=== PATIENT | male | born 1980 | race Caucasian/White ===

== ENCOUNTER 2018-04-10 08:56 | Inpatient (IN) | payer MEDICAID ==
[~2018-04-10] VITALS: Ht 188 cm; Wt 114.1 kg
[2018-04-10] MEDS ORDERED: QUET25TA PO (09:07)
[2018-04-10] MEDS ORDERED: ASPI-556 PO (09:24)
[2018-04-10] MEDS ORDERED: ESCI10TA PO (09:24)
[2018-04-10] MEDS ORDERED: HYDR25TA PO (09:24)
[2018-04-10 09:25] LABS: BASOPHILS % (AUTO) 1.2 % (0.0-2.0); EOSINOPHILS % (AUTO) 2.1 % (1.0-6.0); HEMATOCRIT 41.7 % (41-53); HEMOGLOBIN 14.4 g/dL (13.5-17.5); LYMPHOCYTES # (AUTO) 1.8 K/uL (1.0-4.8); LYMPHOCYTES % (AUTO) 20.5 % (22.0-44.0); MEAN CORPUSCULAR HEMOGLOBIN 29.1 pg (26.0-34.0); MEAN CORPUSCULAR HGB CONC 34.6 G/dL (31.0-37.0); MEAN CORPUSCULAR VOLUME 84 fL (80-100); MONOCYTES # (AUTO) 0.6 K/uL (0.1-1.0); MONOCYTES % (AUTO) 7.5 % (2.0-9.0); NEUTROPHILS # (AUTO) 5.9 K/uL (1.8-7.7); NEUTROPHILS % (AUTO) 68.7 % (40.0-70.0); PLATELET COUNT (AUTO) 303 K/uL (150-450); RED BLOOD CELL COUNT(AUTO) 4.95 MIL/uL (4.50-5.90); RED CELL DISTRIBUTION WIDTH 13.5 % (11.5-14.5)
[2018-04-10] MEDS ORDERED: DiphenhydrAMINE HCL 50 MG/ML VIAL IM ONE (09:30)
[2018-04-10] MEDS ORDERED: LORazepam 2 MG/ML VIAL IM ONE (09:30)
[2018-04-10] MEDS ORDERED: HALOPERIDOL LACTATE 5 MG/ML VIAL IM ONE (09:30)
[2018-04-10 09:36] LABS: ANION GAP 8 mmol/L (8-16); CALCIUM, TOTAL 8.2 mg/dL (8.8-10.5); CARBON DIOXIDE 27 mmol/L (22-29); CHLORIDE 102 mmol/L (98-107); CREATININE 1.08 mg/dL (0.60-1.30); GLOMERULAR FILTR. RATE CALC > 60 mL/min (>60); GLUCOSE,RANDOM 123 mg/dL (70-110); POTASSIUM 3.4 mmol/L (3.5-5.1); SODIUM SERUM 137 mmol/L (136-145); UREA NITROGEN, BLOOD 18 mg/dL (7-18)
[2018-04-10 09:42] LABS: ALANINE AMINOTRANSFERASE 71 U/L (12-78); ALBUMIN 3.9 g/dL (3.4-5.0); ALKALINE PHOSPHATASE 57 U/L (46-116); ASPARTATE AMINOTRANSFERASE 53 U/L (15-37); BILIRUBIN,TOTAL 0.4 mg/dL (0.1-1.0); TOTAL PROTEIN, SERUM 7.6 g/dL (6.4-8.2)
[2018-04-10 09:58] LABS: AMPHET/METH SCREEN,URINE NEGATIVE (NEGATIVE); BARBITURATE SCREEN, URINE NEGATIVE (NEGATIVE); BENZODIAZEPINES SCREEN,URINE NEGATIVE (NEGATIVE); CANNABINOID SCREEN,URINE NEGATIVE (NEGATIVE); COCAINE SCREEN,URINE NEGATIVE (NEGATIVE); METHADONE SCREEN, URINE NEGATIVE (NEGATIVE); OPIATE SCREEN,URINE NEGATIVE (NEGATIVE)
[2018-04-10 09:59] LABS: PHENCYCLIDINE SCREEN,URINE NEGATIVE (NEGATIVE)
[2018-04-10 11:29] LABS: CHOL/HDL RATIO 5.7 (4.2-7.3); CHOLESTEROL 193 mg/dL (131-200); HDL CHOLESTEROL 34 mg/dL (40-60); LDL CHOL (CALC.) 125 mg/dL (0-130); TRIGLYCERIDES 172 mg/dL (15-150)
[2018-04-10] MEDS ORDERED: POTASSIUM CHLORIDE 20 MEQ ER TABLET PO ONE (16:00)
[2018-04-10 16:11] VITALS: BP 132/80
[2018-04-10] MEDS: LORazepam 2 MG TABLET PO PRN (16:31)
[2018-04-10] MEDS: HALOPERIDOL 5 MG TABLET PO PRN (16:31)
[2018-04-10] MEDS: HYDROCHLOROTHIAZIDE 25 MG TABLET PO SCH (16:31)
[2018-04-11 01:18] VITALS: BP 125/72
[2018-04-11 07:38] LABS: ANION GAP 7 mmol/L (8-16); CALCIUM, TOTAL 7.8 mg/dL (8.8-10.5); CARBON DIOXIDE 29 mmol/L (22-29); CHLORIDE 107 mmol/L (98-107); CREATININE 1.06 mg/dL (0.60-1.30); GLOMERULAR FILTR. RATE CALC > 60 mL/min (>60); GLUCOSE,RANDOM 92 mg/dL (70-110); SODIUM SERUM 143 mmol/L (136-145); UREA NITROGEN, BLOOD 18 mg/dL (7-18)
[2018-04-11 08:09] VITALS: BP_SYST 157; BP_DIAS 82; BP_DIAS 92
[2018-04-11] MEDS: ASPIRIN 81 MG CHEWABLE TABLET PO SCH (08:48)
[2018-04-11] MEDS: HALOPERIDOL 5 MG TABLET PO PRN ×2 (08:48→16:57)
[2018-04-11] MEDS: HYDROCHLOROTHIAZIDE 25 MG TABLET PO SCH (08:48)
[2018-04-11] MEDS: LORazepam 2 MG TABLET PO PRN ×2 (08:48→16:57)
[2018-04-11] MEDS ORDERED: HYDROCHLOROTHIAZIDE 25 MG TABLET PO SCH (09:00)
[2018-04-11] MEDS: RisperiDONE 1 MG TABLET PO SCH ×2 (09:43→20:23)
[2018-04-11] MEDS: SERTRALINE HCL 50 MG TABLET PO SCH (09:43)
[2018-04-11 16:13] VITALS: BP 111/82
[2018-04-12 06:32] VITALS: BP 128/86
[2018-04-12 08:55] VITALS: BP 142/73
[2018-04-12] MEDS: HYDROCHLOROTHIAZIDE 25 MG TABLET PO SCH (09:32)
[2018-04-12] MEDS: RisperiDONE 1 MG TABLET PO SCH ×2 (09:32→20:06)
[2018-04-12] MEDS: SERTRALINE HCL 50 MG TABLET PO SCH (09:32)
[2018-04-12] MEDS: ASPIRIN 81 MG CHEWABLE TABLET PO SCH (09:32)
[2018-04-12] MEDS: HALOPERIDOL 5 MG TABLET PO PRN ×2 (09:33→20:06)
[2018-04-12] MEDS: LORazepam 2 MG TABLET PO PRN ×2 (09:33→20:06)
[2018-04-12] MEDS: NICOTINE 21 MG/24 HOUR PATCH TD SCH (09:50)
[2018-04-12 16:00] VITALS: BP 123/68
[2018-04-12] MEDS: DiphenhydrAMINE HCL 25 MG CAPSULE PO PRN (20:06)
[2018-04-12] MEDS: ZOLPIDEM TARTRATE 10 MG TABLET PO PRN (20:33)
[2018-04-13 06:30] VITALS: BP 137/90
[2018-04-13] MEDS: LORazepam 2 MG TABLET PO PRN (08:35)
[2018-04-13] MEDS: HYDROCHLOROTHIAZIDE 25 MG TABLET PO SCH (08:36)
[2018-04-13] MEDS: RisperiDONE 1 MG TABLET PO SCH ×2 (08:36→20:58)
[2018-04-13] MEDS: SERTRALINE HCL 50 MG TABLET PO SCH (08:36)
[2018-04-13] MEDS: ASPIRIN 81 MG CHEWABLE TABLET PO SCH (08:36)
[2018-04-13] MEDS: NICOTINE 21 MG/24 HOUR PATCH TD SCH (08:37)
[2018-04-13 08:47] VITALS: BP 135/82
[2018-04-13] MEDS ORDERED: SERT50TA12 PO (10:10)
[2018-04-13] MEDS ORDERED: NICO-650 MISC (10:10)
[2018-04-13] MEDS ORDERED: RISP1 PO (10:10)
[2018-04-13] MEDS ORDERED: HALO5TAB2 PO (10:10)
[2018-04-13] MEDS ORDERED: DIPH50 PO (10:10)
[2018-04-13] MEDS ORDERED: LORA2TAB2 PO (10:10)
[2018-04-13] MEDS ORDERED: ZOLP10TA7 PO (10:10)
[2018-04-13 14:00] VITALS: BP 116/78
[2018-04-13] MEDS: IBUPROFEN 600 MG TABLET PO PRN (14:00)
[2018-04-13] MEDS ORDERED: ACETAMINOPHEN 325 MG TABLET PO PRN (14:00)
[2018-04-13] MEDS ORDERED: LORazepam 2 MG/ML VIAL ONE (14:58)
[2018-04-13] MEDS ORDERED: HALOPERIDOL LACTATE 5 MG/ML VIAL ONE (14:59)
[2018-04-13] MEDS ORDERED: DiphenhydrAMINE HCL 50 MG/ML VIAL ONE (14:59)
[2018-04-13 15:00] VITALS: BP 118/72
[2018-04-13] MEDS ORDERED: LORazepam 2 MG/ML VIAL IM ONE (15:00)
[2018-04-13] MEDS ORDERED: DiphenhydrAMINE HCL 50 MG/ML VIAL IM ONE (15:00)
[2018-04-13] MEDS ORDERED: HALOPERIDOL LACTATE 5 MG/ML VIAL IM ONE (15:00)
[2018-04-13 16:09] VITALS: BP 133/73
[2018-04-13] MEDS: ZOLPIDEM TARTRATE 10 MG TABLET PO PRN (20:58)
[2018-04-14] MEDS: DiphenhydrAMINE HCL 25 MG CAPSULE PO PRN (01:16)
[2018-04-14 01:17] VITALS: BP 143/87
[2018-04-14] MEDS: IBUPROFEN 600 MG TABLET PO PRN (05:59)
[2018-04-14 06:01] VITALS: BP 140/88
[2018-04-14] MEDS: HALOPERIDOL 5 MG TABLET PO PRN (06:37)
[2018-04-14] MEDS: LORazepam 2 MG TABLET PO PRN ×2 (07:58→17:54)
[2018-04-14] MEDS: SERTRALINE HCL 50 MG TABLET PO SCH (08:36)
[2018-04-14] MEDS: HYDROCHLOROTHIAZIDE 25 MG TABLET PO SCH (08:36)
[2018-04-14] MEDS: RisperiDONE 1 MG TABLET PO SCH ×2 (08:36→21:40)
[2018-04-14] MEDS: NICOTINE 21 MG/24 HOUR PATCH TD SCH (08:36)
[2018-04-14] MEDS: ASPIRIN 81 MG CHEWABLE TABLET PO SCH (08:37)
[2018-04-14 08:53] VITALS: BP 155/98
[2018-04-14] MEDS ORDERED: HALOPERIDOL LACTATE 5 MG/ML VIAL IM ONE ×2 (09:00→18:15)
[2018-04-14] MEDS ORDERED: LORazepam 2 MG/ML VIAL IM ONE (09:00)
[2018-04-14] MEDS ORDERED: DiphenhydrAMINE HCL 50 MG/ML VIAL IM ONE ×2 (09:00→18:15)
[2018-04-14 09:30] VITALS: BP 111/70
[2018-04-14 16:12] VITALS: BP 137/87
[2018-04-15] MEDS: ZOLPIDEM TARTRATE 10 MG TABLET PO PRN ×2 (00:52→20:19)
[2018-04-15] MEDS: QUEtiapine FUMARATE 200 MG TABLET PO PRN ×3 (00:52→15:51)
[2018-04-15] MEDS: DiphenhydrAMINE HCL 25 MG CAPSULE PO PRN (00:52)
[2018-04-15 06:26] VITALS: BP 142/88
[2018-04-15 08:05] VITALS: BP 140/85
[2018-04-15] MEDS: BACITRACIN 28.4 GM OINTMENT TP SCH (08:30)
[2018-04-15] MEDS: ASPIRIN 81 MG CHEWABLE TABLET PO SCH (08:30)
[2018-04-15] MEDS: SERTRALINE HCL 50 MG TABLET PO SCH (08:30)
[2018-04-15] MEDS: RisperiDONE 1 MG TABLET PO SCH ×2 (08:30→20:19)
[2018-04-15] MEDS: NICOTINE 21 MG/24 HOUR PATCH TD SCH (08:31)
[2018-04-15] MEDS: HYDROCHLOROTHIAZIDE 25 MG TABLET PO SCH (08:31)
[2018-04-15] MEDS: LORazepam 2 MG TABLET PO PRN ×3 (11:49→20:19)
[2018-04-15 16:00] VITALS: BP 142/90
[2018-04-16] MEDS: DiphenhydrAMINE HCL 25 MG CAPSULE PO PRN ×2 (02:08→20:23)
[2018-04-16 02:13] VITALS: BP 139/103
[2018-04-16] MEDS: QUEtiapine FUMARATE 200 MG TABLET PO PRN (02:25)
[2018-04-16] MEDS: LORazepam 2 MG TABLET PO PRN ×2 (04:42→08:58)
[2018-04-16] MEDS: QUEtiapine FUMARATE 100 MG TABLET PO PRN ×4 (05:56→20:23)
[2018-04-16 08:22] VITALS: BP 151/88
[2018-04-16] MEDS: ASPIRIN 81 MG CHEWABLE TABLET PO SCH (08:58)
[2018-04-16] MEDS: HYDROCHLOROTHIAZIDE 25 MG TABLET PO SCH (08:58)
[2018-04-16] MEDS: SERTRALINE HCL 50 MG TABLET PO SCH (08:58)
[2018-04-16] MEDS: NICOTINE 21 MG/24 HOUR PATCH TD SCH (08:58)
[2018-04-16] MEDS: RisperiDONE 1 MG TABLET PO SCH ×2 (08:58→20:23)
[2018-04-16] MEDS: BACITRACIN 28.4 GM OINTMENT TP SCH (09:02)
[2018-04-16] MEDS: LORazepam 1 MG TABLET PO PRN ×2 (12:56→17:20)
[2018-04-16 16:00] VITALS: BP 138/84
[2018-04-16] MEDS: LORATADINE 10 MG TABLET PO SCH (17:20)
[2018-04-16] MEDS: ZOLPIDEM TARTRATE 10 MG TABLET PO PRN (20:23)
[2018-04-16] MEDS: IBUPROFEN 600 MG TABLET PO PRN (22:09)
[2018-04-17] MEDS: LORazepam 1 MG TABLET PO PRN ×4 (00:26→16:28)
[2018-04-17] MEDS: QUEtiapine FUMARATE 100 MG TABLET PO PRN ×4 (00:26→16:05)
[2018-04-17 04:41] VITALS: BP 139/88
[2018-04-17] MEDS: IBUPROFEN 600 MG TABLET PO PRN ×2 (06:27→16:05)
[2018-04-17 08:53] VITALS: BP 134/87
[2018-04-17] MEDS: LORATADINE 10 MG TABLET PO SCH (09:01)
[2018-04-17] MEDS: HYDROCHLOROTHIAZIDE 25 MG TABLET PO SCH (09:01)
[2018-04-17] MEDS: ASPIRIN 81 MG CHEWABLE TABLET PO SCH (09:01)
[2018-04-17] MEDS: SERTRALINE HCL 50 MG TABLET PO SCH (09:01)
[2018-04-17] MEDS: RisperiDONE 1 MG TABLET PO SCH ×2 (09:01→20:11)
[2018-04-17] MEDS: NICOTINE 21 MG/24 HOUR PATCH TD SCH (09:04)
[2018-04-17] MEDS: BACITRACIN 28.4 GM OINTMENT TP SCH (09:05)
[2018-04-17 12:25] VITALS: BP 137/80
[2018-04-17 16:03] VITALS: BP 135/88
[2018-04-17 16:06] VITALS: BP 139/88
[2018-04-17] MEDS: ZOLPIDEM TARTRATE 10 MG TABLET PO PRN (20:11)
[2018-04-18] MEDS: QUEtiapine FUMARATE 100 MG TABLET PO PRN ×2 (03:18→16:19)
[2018-04-18] MEDS: IBUPROFEN 600 MG TABLET PO PRN ×3 (03:18→19:27)
[2018-04-18] MEDS: LORazepam 1 MG TABLET PO PRN ×2 (03:18→14:13)
[2018-04-18 03:19] VITALS: BP 149/96
[2018-04-18 08:14] VITALS: BP 147/91
[2018-04-18] MEDS: SERTRALINE HCL 50 MG TABLET PO SCH (08:33)
[2018-04-18] MEDS: LORATADINE 10 MG TABLET PO SCH (08:33)
[2018-04-18] MEDS: HYDROCHLOROTHIAZIDE 25 MG TABLET PO SCH (08:33)
[2018-04-18] MEDS: RisperiDONE 1 MG TABLET PO SCH ×2 (08:34→20:29)
[2018-04-18] MEDS: ASPIRIN 81 MG CHEWABLE TABLET PO SCH (08:34)
[2018-04-18] MEDS: BACITRACIN 28.4 GM OINTMENT TP SCH (08:37)
[2018-04-18] MEDS: NICOTINE 21 MG/24 HOUR PATCH TD SCH (08:37)
[2018-04-18 12:50] VITALS: BP 139/91
[2018-04-18 16:24] VITALS: BP 146/86
[2018-04-18] MEDS: DiphenhydrAMINE HCL 25 MG CAPSULE PO PRN (20:29)
[2018-04-18] MEDS: ZOLPIDEM TARTRATE 10 MG TABLET PO PRN (20:30)
[2018-04-19 00:45] VITALS: BP 142/88
[2018-04-19] MEDS: QUEtiapine FUMARATE 100 MG TABLET PO PRN (00:46)
[2018-04-19] MEDS: LORazepam 1 MG TABLET PO PRN (00:47)
[2018-04-19] MEDS: IBUPROFEN 600 MG TABLET PO PRN (06:25)
[2018-04-19 08:07] VITALS: BP 117/66
[2018-04-19] MEDS: RisperiDONE 1 MG TABLET PO SCH (08:17)
[2018-04-19] MEDS: ASPIRIN 81 MG CHEWABLE TABLET PO SCH (08:17)
[2018-04-19] MEDS: SERTRALINE HCL 50 MG TABLET PO SCH (08:17)
[2018-04-19] MEDS: LORATADINE 10 MG TABLET PO SCH (08:17)
[2018-04-19] MEDS: NICOTINE 21 MG/24 HOUR PATCH TD SCH (08:18)
[2018-04-19] MEDS: HYDROCHLOROTHIAZIDE 25 MG TABLET PO SCH (08:18)
[2018-04-19] MEDS: BACITRACIN 28.4 GM OINTMENT TP SCH (08:18)
[2018-04-19] MEDS ORDERED: LORA10TA7 PO (08:47)
== END 2018-04-19 10:45 | disposition home or self-care (01) | DRG 750 ==
LOC: EMS 09:00 → B3A 13:47
DX: F25.1 Schizoaffective disorder, depressive type (principal); Z59.0 Homelessness; M43.6 Torticollis; R03.0 Elevated blood-pressure reading, without diagnosis of hypertension; Z79.899 Other long term (current) drug therapy
CPT/HCPCS: 96372; 99285; G0480; J1200; J1630; J2060

== ENCOUNTER 2018-04-13 09:47 | Emergency (ER) | payer MEDICAID ==
[~2018-04-13] VITALS: Ht 190.5 cm; Wt 104.0 kg
[~2018-04-13 09:47] MED LIST: ASPI-556 PO; ESCI10TA PO; HYDR25TA PO; QUET25TA PO
[2018-04-13] MEDS ORDERED: NICO-650 MISC (10:10)
[2018-04-13] MEDS ORDERED: SERT50TA12 PO (10:10)
[2018-04-13] MEDS ORDERED: HALO5TAB2 PO (10:10)
[2018-04-13] MEDS ORDERED: LORA2TAB2 PO (10:10)
[2018-04-13] MEDS ORDERED: ZOLP10TA7 PO (10:10)
[2018-04-13] MEDS ORDERED: DIPH50 PO (10:10)
[2018-04-13] MEDS ORDERED: RISP1 PO (10:10)
[2018-04-13 10:19] VITALS: BP 134/76
== END 2018-04-13 11:12 | disposition home or self-care (01) ==
LOC: EMS 09:48
DX: G25.9 Extrapyramidal and movement disorder, unspecified (principal)
CPT/HCPCS: 99283

== ENCOUNTER 2018-04-29 10:26 | Inpatient (IN) | payer MEDICAID ==
[~2018-04-29] VITALS: Ht 190.5 cm; Wt 108.9 kg
[~2018-04-29 10:26] MED LIST changes: -ESCI10TA PO; +LORA10TA7 PO; -QUET25TA PO; +RISP1 PO; +SERT50TA12 PO
[2018-04-29 11:07] LABS: BASOPHILS % (AUTO) 0.9 % (0.0-2.0); EOSINOPHILS % (AUTO) 2.5 % (1.0-6.0); HEMATOCRIT 41.9 % (41-53); HEMOGLOBIN 14.9 g/dL (13.5-17.5); LYMPHOCYTES # (AUTO) 2.1 K/uL (1.0-4.8); LYMPHOCYTES % (AUTO) 24.3 % (22.0-44.0); MEAN CORPUSCULAR HEMOGLOBIN 29.5 pg (26.0-34.0); MEAN CORPUSCULAR HGB CONC 35.6 G/dL (31.0-37.0); MEAN CORPUSCULAR VOLUME 83 fL (80-100); MONOCYTES # (AUTO) 0.5 K/uL (0.1-1.0); MONOCYTES % (AUTO) 6.1 % (2.0-9.0); NEUTROPHILS # (AUTO) 5.6 K/uL (1.8-7.7); NEUTROPHILS % (AUTO) 66.2 % (40.0-70.0); PLATELET COUNT (AUTO) 322 K/uL (150-450); RED BLOOD CELL COUNT(AUTO) 5.06 MIL/uL (4.50-5.90)
[2018-04-29 11:21] LABS: ALANINE AMINOTRANSFERASE 77 U/L (12-78); ALBUMIN 3.9 g/dL (3.4-5.0); ALKALINE PHOSPHATASE 51 U/L (46-116); ANION GAP 8 mmol/L (8-16); ASPARTATE AMINOTRANSFERASE 52 U/L (15-37); BILIRUBIN,TOTAL 0.4 mg/dL (0.1-1.0); CALCIUM, TOTAL 8.3 mg/dL (8.8-10.5); CARBON DIOXIDE 29 mmol/L (22-29); CHLORIDE 100 mmol/L (98-107); CREATININE 1.09 mg/dL (0.60-1.30); GLOMERULAR FILTR. RATE CALC > 60 mL/min (>60); GLUCOSE,RANDOM 112 mg/dL (70-110); SODIUM SERUM 137 mmol/L (136-145); TOTAL PROTEIN, SERUM 7.3 g/dL (6.4-8.2); UREA NITROGEN, BLOOD 15 mg/dL (7-18)
[2018-04-29 11:25] LABS: POTASSIUM 2.8 mmol/L (3.5-5.1)
[2018-04-29] MEDS ORDERED: LORazepam 2 MG/ML VIAL IM ONE (11:30)
[2018-04-29] MEDS ORDERED: POTASSIUM CHLORIDE 20 MEQ ER TABLET PO ONE (11:30)
[2018-04-29] MEDS ORDERED: FluPHENAZine HCL 2.5 MG/ML INJ IM ONE (11:30)
[2018-04-29] MEDS ORDERED: DiphenhydrAMINE HCL 50 MG/ML VIAL IM ONE (11:30)
[2018-04-29 11:37] LABS: AMPHET/METH SCREEN,URINE NEGATIVE (NEGATIVE); BARBITURATE SCREEN, URINE NEGATIVE (NEGATIVE); BENZODIAZEPINES SCREEN,URINE NEGATIVE (NEGATIVE); CANNABINOID SCREEN,URINE NEGATIVE (NEGATIVE); COCAINE SCREEN,URINE NEGATIVE (NEGATIVE); METHADONE SCREEN, URINE NEGATIVE (NEGATIVE); OPIATE SCREEN,URINE NEGATIVE (NEGATIVE)
[2018-04-29 11:39] LABS: PHENCYCLIDINE SCREEN,URINE NEGATIVE (NEGATIVE)
[2018-04-29 19:01] VITALS: BP 137/79
[2018-04-29] MEDS: LORazepam 2 MG TABLET PO PRN (19:08)
[2018-04-29] MEDS ORDERED: POTASSIUM CHLORIDE 10 MEQ ER TABLET PO ONE (19:45)
[2018-04-29] MEDS: ZOLPIDEM TARTRATE 10 MG TABLET PO PRN (20:04)
[2018-04-29] MEDS: RisperiDONE 1 MG TABLET PO SCH (20:04)
[2018-04-30 04:01] VITALS: BP 132/88
[2018-04-30] MEDS ORDERED: HYDROCHLOROTHIAZIDE 25 MG TABLET PO SCH (09:00)
[2018-04-30] MEDS: ASPIRIN 81 MG CHEWABLE TABLET PO SCH (09:04)
[2018-04-30] MEDS: SERTRALINE HCL 50 MG TABLET PO SCH (09:04)
[2018-04-30] MEDS: RisperiDONE 1 MG TABLET PO SCH ×2 (09:04→20:50)
[2018-04-30] MEDS: NICOTINE 14 MG/24 HOUR PATCH TD SCH (09:05)
[2018-04-30] MEDS ORDERED: POTASSIUM CHLORIDE 20 MEQ ER TABLET PO ONE ×3 (09:35→17:00)
[2018-04-30] MEDS ORDERED: SERTRALINE HCL 50 MG TABLET PO SCH (10:45)
[2018-04-30] MEDS ORDERED: RisperiDONE 1 MG TABLET PO SCH (10:45)
[2018-04-30] MEDS ORDERED: ACETAMINOPHEN 325 MG TABLET PO PRN (11:30)
[2018-04-30] MEDS ORDERED: PETROLATUM,WHITE 71 GM JELLY TP PRN (11:30)
[2018-04-30] MEDS ORDERED: CloNIDine HCL 0.1 MG TABLET PO PRN (11:30)
[2018-04-30] MEDS ORDERED: IBUPROFEN 400 MG TABLET PO PRN (11:30)
[2018-04-30] MEDS ORDERED: DOCUSATE SODIUM 100 MG CAPSULE PO PRN (11:30)
[2018-04-30] MEDS ORDERED: MAGNESIUM HYDROXIDE SUSPENSION 30 ML UDCUP PO PRN (11:30)
[2018-04-30] MEDS ORDERED: ALBUTEROL SULFATE HFA 90 MCG/PUFF 8 GM INHALER IH PRN (11:30)
[2018-04-30] MEDS ORDERED: MAG HYDROX/AL HYDROX/SIMETH ES 30 ML SUSPENSION UDCUP PO PRN (11:30)
[2018-04-30] MEDS ORDERED: ONDANSETRON HCL 4 MG TABLET PO PRN (11:30)
[2018-04-30] MEDS ORDERED: LOPERAMIDE HCL 2 MG CAPSULE PO PRN (11:30)
[2018-04-30] MEDS: LORazepam 2 MG TABLET PO PRN ×2 (13:34→17:47)
[2018-04-30] MEDS: QUEtiapine FUMARATE 100 MG TABLET PO PRN (13:34)
[2018-04-30 14:38] VITALS: BP 121/65
[2018-04-30 15:39] LABS: ANION GAP 13 mmol/L (8-16); CALCIUM, TOTAL 8.5 mg/dL (8.8-10.5); CARBON DIOXIDE 27 mmol/L (22-29); CHLORIDE 100 mmol/L (98-107); GLOMERULAR FILTR. RATE CALC > 60 mL/min (>60); GLUCOSE,RANDOM 96 mg/dL (70-110); SODIUM SERUM 140 mmol/L (136-145); UREA NITROGEN, BLOOD 19 mg/dL (7-18)
[2018-04-30 16:00] VITALS: BP 116/67
[2018-05-01] MEDS: QUEtiapine FUMARATE 100 MG TABLET PO PRN (04:13)
[2018-05-01] MEDS: LORazepam 2 MG TABLET PO PRN ×3 (04:13→23:33)
[2018-05-01 05:27] VITALS: BP 122/71
[2018-05-01 08:07] VITALS: BP 153/88
[2018-05-01] MEDS ORDERED: NICOTINE 14 MG/24 HOUR PATCH TD SCH (09:00)
[2018-05-01] MEDS: ASPIRIN 81 MG CHEWABLE TABLET PO SCH (09:28)
[2018-05-01] MEDS: AmLODIPine BESYLATE 10 MG TABLET PO SCH (09:28)
[2018-05-01] MEDS: RisperiDONE 1 MG TABLET PO SCH ×2 (09:28→20:17)
[2018-05-01] MEDS: SERTRALINE HCL 50 MG TABLET PO SCH (09:28)
[2018-05-01] MEDS: NICOTINE 14 MG/24 HOUR PATCH TD SCH (09:29)
[2018-05-01 16:00] VITALS: BP 130/79
[2018-05-01] MEDS: ZOLPIDEM TARTRATE 10 MG TABLET PO PRN (20:17)
[2018-05-02 01:08] VITALS: BP 140/96
[2018-05-02 08:00] VITALS: BP 161/105
[2018-05-02] MEDS: SERTRALINE HCL 50 MG TABLET PO SCH (08:19)
[2018-05-02] MEDS: LORazepam 2 MG TABLET PO PRN (08:19)
[2018-05-02] MEDS: NICOTINE 14 MG/24 HOUR PATCH TD SCH (08:19)
[2018-05-02] MEDS: AmLODIPine BESYLATE 10 MG TABLET PO SCH (08:19)
[2018-05-02] MEDS: ASPIRIN 81 MG CHEWABLE TABLET PO SCH (08:19)
[2018-05-02] MEDS: RisperiDONE 1 MG TABLET PO SCH ×2 (08:20→21:19)
[2018-05-02 08:54] LABS: POTASSIUM 3.7 mmol/L (3.5-5.1)
[2018-05-02 08:58] LABS: HEMOGLOBIN A1C 5.7 % (4.5-6.2)
[2018-05-02 16:00] VITALS: BP 130/85
[2018-05-03] MEDS: ZOLPIDEM TARTRATE 10 MG TABLET PO PRN (00:45)
[2018-05-03 01:35] VITALS: BP 136/90
[2018-05-03] MEDS: LORazepam 2 MG TABLET PO PRN ×2 (05:20→08:26)
[2018-05-03 08:10] VITALS: BP 140/81
[2018-05-03] MEDS: NICOTINE 14 MG/24 HOUR PATCH TD SCH (08:26)
[2018-05-03] MEDS: AmLODIPine BESYLATE 10 MG TABLET PO SCH (08:27)
[2018-05-03] MEDS: SERTRALINE HCL 50 MG TABLET PO SCH (08:27)
[2018-05-03] MEDS: ASPIRIN 81 MG CHEWABLE TABLET PO SCH (08:27)
[2018-05-03] MEDS: RisperiDONE 1 MG TABLET PO SCH (08:27)
[2018-05-03] MEDS ORDERED: SERT50TA12 PO (08:36)
[2018-05-03] MEDS ORDERED: RISP1 PO (08:36)
[2018-05-03] MEDS ORDERED: RISP1TAB89 PO (11:51)
[2018-05-03] MEDS ORDERED: AMLO-512 PO (11:51)
== END 2018-05-03 12:38 | disposition home or self-care (01) | DRG 750 ==
LOC: EMS 10:29 → B3A 17:55
DX: F25.1 Schizoaffective disorder, depressive type (principal); R45.851 Suicidal ideations; R74.0 Nonspecific elevation of levels of transaminase and lactic acid dehydrogenase [LDH]; I10 Essential (primary) hypertension; E87.6 Hypokalemia; J30.9 Allergic rhinitis, unspecified; Z79.899 Other long term (current) drug therapy
CPT/HCPCS: 83036; 84132; 87081; 96372; 99285; G0480; J1200; J2060; J3490

== ENCOUNTER 2018-05-16 11:34 | Inpatient (IN) | payer MEDICAID ==
[~2018-05-16] VITALS: Ht 190.5 cm; Wt 106.0 kg
[~2018-05-16 11:34] MED LIST changes: +AMLO-512 PO; -HYDR25TA PO; -LORA10TA7 PO; +RISP1TAB89 PO
[2018-05-16 12:05] LABS: AMPHET/METH SCREEN,URINE NEGATIVE (NEGATIVE); BARBITURATE SCREEN, URINE NEGATIVE (NEGATIVE); BENZODIAZEPINES SCREEN,URINE POSITIVE (NEGATIVE); CANNABINOID SCREEN,URINE NEGATIVE (NEGATIVE); COCAINE SCREEN,URINE NEGATIVE (NEGATIVE); METHADONE SCREEN, URINE NEGATIVE (NEGATIVE); OPIATE SCREEN,URINE NEGATIVE (NEGATIVE)
[2018-05-16 12:06] LABS: PHENCYCLIDINE SCREEN,URINE NEGATIVE (NEGATIVE)
[2018-05-16 12:20] LABS: BASOPHILS % (AUTO) 0.9 % (0.0-2.0); EOSINOPHILS % (AUTO) 0.7 % (1.0-6.0); HEMATOCRIT 40.7 % (41-53); HEMOGLOBIN 14.2 g/dL (13.5-17.5); LYMPHOCYTES # (AUTO) 1.8 K/uL (1.0-4.8); LYMPHOCYTES % (AUTO) 17.4 % (22.0-44.0); MEAN CORPUSCULAR HEMOGLOBIN 29.6 pg (26.0-34.0); MEAN CORPUSCULAR VOLUME 85 fL (80-100); MONOCYTES # (AUTO) 0.7 K/uL (0.1-1.0); MONOCYTES % (AUTO) 6.5 % (2.0-9.0); NEUTROPHILS # (AUTO) 7.7 K/uL (1.8-7.7); NEUTROPHILS % (AUTO) 74.5 % (40.0-70.0); PLATELET COUNT (AUTO) 295 K/uL (150-450); RED CELL DISTRIBUTION WIDTH 13.6 % (11.5-14.5)
[2018-05-16 12:39] LABS: ANION GAP 13 mmol/L (8-16); CALCIUM, TOTAL 8.8 mg/dL (8.8-10.5); CARBON DIOXIDE 24 mmol/L (22-29); CHLORIDE 103 mmol/L (98-107); CREATININE 1.12 mg/dL (0.60-1.30); GLOMERULAR FILTR. RATE CALC > 60 mL/min (>60); GLUCOSE,RANDOM 111 mg/dL (70-110); POTASSIUM 3.6 mmol/L (3.5-5.1); SODIUM SERUM 140 mmol/L (136-145); UREA NITROGEN, BLOOD 16 mg/dL (7-18)
[2018-05-16 12:44] LABS: ALANINE AMINOTRANSFERASE 46 U/L (12-78); ALBUMIN 4.1 g/dL (3.4-5.0); ALKALINE PHOSPHATASE 46 U/L (46-116); ASPARTATE AMINOTRANSFERASE 26 U/L (15-37); BILIRUBIN,TOTAL 0.4 mg/dL (0.1-1.0); TOTAL PROTEIN, SERUM 7.2 g/dL (6.4-8.2)
[2018-05-16] MEDS ORDERED: RisperiDONE 1 MG TABLET PO ONE (12:45)
[2018-05-16] MEDS: LORazepam 2 MG TABLET PO PRN ×2 (13:46→20:49)
[2018-05-16 20:20] VITALS: BP 144/98
[2018-05-16] MEDS: RisperiDONE 2 MG TABLET PO SCH (20:49)
[2018-05-16] MEDS ORDERED: LOPERAMIDE HCL 2 MG CAPSULE PO PRN (21:15)
[2018-05-16] MEDS ORDERED: PETROLATUM,WHITE 71 GM JELLY TP PRN (21:15)
[2018-05-16] MEDS ORDERED: MAG HYDROX/AL HYDROX/SIMETH ES 30 ML SUSPENSION UDCUP PO PRN (21:15)
[2018-05-16] MEDS ORDERED: CloNIDine HCL 0.1 MG TABLET PO PRN (21:15)
[2018-05-16] MEDS ORDERED: ALBUTEROL SULFATE HFA 90 MCG/PUFF 8 GM INHALER IH PRN (21:15)
[2018-05-16] MEDS ORDERED: DOCUSATE SODIUM 100 MG CAPSULE PO PRN (21:15)
[2018-05-16] MEDS ORDERED: ONDANSETRON HCL 4 MG TABLET PO PRN (21:15)
[2018-05-16] MEDS ORDERED: MAGNESIUM HYDROXIDE SUSPENSION 30 ML UDCUP PO PRN (21:15)
[2018-05-16] MEDS: ZOLPIDEM TARTRATE 10 MG TABLET PO PRN (21:44)
[2018-05-17] MEDS: LORazepam 2 MG TABLET PO PRN ×4 (03:17→18:36)
[2018-05-17] MEDS: ACETAMINOPHEN 325 MG TABLET PO PRN ×2 (04:22→12:18)
[2018-05-17 04:23] VITALS: BP 135/92
[2018-05-17 07:00] LABS: HEMOGLOBIN A1C 5.4 % (4.5-6.2)
[2018-05-17 07:09] LABS: BASOPHILS % (AUTO) 0.6 % (0.0-2.0); EOSINOPHILS % (AUTO) 2.2 % (1.0-6.0); HEMATOCRIT 43.1 % (41-53); LYMPHOCYTES # (AUTO) 2.1 K/uL (1.0-4.8); LYMPHOCYTES % (AUTO) 24.8 % (22.0-44.0); MEAN CORPUSCULAR HEMOGLOBIN 29.3 pg (26.0-34.0); MEAN CORPUSCULAR HGB CONC 34.8 G/dL (31.0-37.0); MEAN CORPUSCULAR VOLUME 84 fL (80-100); MONOCYTES # (AUTO) 0.7 K/uL (0.1-1.0); MONOCYTES % (AUTO) 7.9 % (2.0-9.0); NEUTROPHILS # (AUTO) 5.6 K/uL (1.8-7.7); NEUTROPHILS % (AUTO) 64.5 % (40.0-70.0); PLATELET COUNT (AUTO) 305 K/uL (150-450); RED BLOOD CELL COUNT(AUTO) 5.11 MIL/uL (4.50-5.90); RED CELL DISTRIBUTION WIDTH 13.8 % (11.5-14.5)
[2018-05-17 07:14] LABS: ALANINE AMINOTRANSFERASE 45 U/L (12-78); ALBUMIN 4.1 g/dL (3.4-5.0); ALKALINE PHOSPHATASE 50 U/L (46-116); ANION GAP 9 mmol/L (8-16); ASPARTATE AMINOTRANSFERASE 25 U/L (15-37); BILIRUBIN,TOTAL 0.5 mg/dL (0.1-1.0); CARBON DIOXIDE 29 mmol/L (22-29); CHLORIDE 99 mmol/L (98-107); CREATININE 1.07 mg/dL (0.60-1.30); GLOMERULAR FILTR. RATE CALC > 60 mL/min (>60); GLUCOSE,RANDOM 89 mg/dL (70-110); POTASSIUM 3.6 mmol/L (3.5-5.1); SODIUM SERUM 137 mmol/L (136-145); TOTAL PROTEIN, SERUM 7.6 g/dL (6.4-8.2); UREA NITROGEN, BLOOD 13 mg/dL (7-18)
[2018-05-17 07:44] LABS: CHOL/HDL RATIO 3.6 (4.2-7.3); CHOLESTEROL 133 mg/dL (131-200); FREE T4 (FREE THYROXINE) 0.89 ng/dL (0.76-1.46); HDL CHOLESTEROL 37 mg/dL (40-60); LDL CHOL (CALC.) 72 mg/dL (0-130); THYROID STIMULATING HORMONE 2.55 uIU/mL (0.36-3.74); TRIGLYCERIDES 119 mg/dL (15-150)
[2018-05-17] MEDS: SERTRALINE HCL 50 MG TABLET PO SCH (07:51)
[2018-05-17] MEDS: ASPIRIN 81 MG CHEWABLE TABLET PO SCH (07:51)
[2018-05-17] MEDS: AmLODIPine BESYLATE 10 MG TABLET PO SCH (07:51)
[2018-05-17] MEDS: NICOTINE 21 MG/24 HOUR PATCH TD SCH (07:51)
[2018-05-17] MEDS: RisperiDONE 2 MG TABLET PO SCH ×2 (07:51→20:27)
[2018-05-17 08:32] VITALS: BP 132/84
[2018-05-17] MEDS ORDERED: NICOTINE 14 MG/24 HOUR PATCH TD SCH (09:00)
[2018-05-17 16:37] VITALS: BP 126/75
[2018-05-17] MEDS: IBUPROFEN 400 MG TABLET PO PRN (16:56)
[2018-05-17] MEDS: ZOLPIDEM TARTRATE 10 MG TABLET PO PRN (20:27)
[2018-05-18 01:55] VITALS: BP 129/76
[2018-05-18] MEDS: IBUPROFEN 400 MG TABLET PO PRN ×2 (02:02→12:56)
[2018-05-18] MEDS: HALOPERIDOL 5 MG TABLET PO PRN ×2 (02:02→02:10)
[2018-05-18] MEDS: LORazepam 2 MG TABLET PO PRN ×3 (03:20→13:15)
[2018-05-18] MEDS: NICOTINE 21 MG/24 HOUR PATCH TD SCH (08:30)
[2018-05-18] MEDS: ASPIRIN 81 MG CHEWABLE TABLET PO SCH (08:30)
[2018-05-18] MEDS: AmLODIPine BESYLATE 10 MG TABLET PO SCH (08:30)
[2018-05-18] MEDS: ACETAMINOPHEN 325 MG TABLET PO PRN (08:30)
[2018-05-18] MEDS: RisperiDONE 2 MG TABLET PO SCH ×2 (08:30→20:56)
[2018-05-18] MEDS: SERTRALINE HCL 50 MG TABLET PO SCH (09:00)
[2018-05-18 09:08] VITALS: BP 131/80
[2018-05-18 19:47] VITALS: BP 142/90
[2018-05-18] MEDS: ZOLPIDEM TARTRATE 10 MG TABLET PO PRN (20:55)
[2018-05-19] MEDS: LORazepam 2 MG TABLET PO PRN ×4 (01:41→20:30)
[2018-05-19] MEDS: ACETAMINOPHEN 325 MG TABLET PO PRN ×2 (01:41→14:11)
[2018-05-19 01:43] VITALS: BP 127/94
[2018-05-19] MEDS: SERTRALINE HCL 50 MG TABLET PO SCH (07:51)
[2018-05-19] MEDS: RisperiDONE 2 MG TABLET PO SCH ×2 (07:52→20:29)
[2018-05-19] MEDS: AmLODIPine BESYLATE 10 MG TABLET PO SCH (07:52)
[2018-05-19] MEDS: ASPIRIN 81 MG CHEWABLE TABLET PO SCH (07:52)
[2018-05-19] MEDS: NICOTINE 21 MG/24 HOUR PATCH TD SCH (07:52)
[2018-05-19 08:31] VITALS: BP 131/76
[2018-05-19 16:45] VITALS: BP 123/72
[2018-05-19] MEDS: ZOLPIDEM TARTRATE 10 MG TABLET PO PRN (20:30)
[2018-05-20] MEDS: LORazepam 2 MG TABLET PO PRN ×3 (02:29→18:25)
[2018-05-20] MEDS: RisperiDONE 2 MG TABLET PO SCH ×2 (08:21→20:20)
[2018-05-20] MEDS: ASPIRIN 81 MG CHEWABLE TABLET PO SCH (08:21)
[2018-05-20] MEDS: AmLODIPine BESYLATE 10 MG TABLET PO SCH (08:21)
[2018-05-20] MEDS: SERTRALINE HCL 50 MG TABLET PO SCH (08:21)
[2018-05-20] MEDS: NICOTINE 21 MG/24 HOUR PATCH TD SCH (08:26)
[2018-05-20 08:42] VITALS: BP 136/83
[2018-05-20 12:37] VITALS: BP 124/79
[2018-05-20] MEDS: ACETAMINOPHEN 325 MG TABLET PO PRN (12:37)
[2018-05-20 18:25] VITALS: BP 154/91
[2018-05-20] MEDS: IBUPROFEN 400 MG TABLET PO PRN (18:25)
[2018-05-20] MEDS: ZOLPIDEM TARTRATE 10 MG TABLET PO PRN (20:20)
[2018-05-21 02:00] VITALS: BP 133/83
[2018-05-21] MEDS: LORazepam 2 MG TABLET PO PRN ×3 (02:00→16:42)
[2018-05-21] MEDS: ACETAMINOPHEN 325 MG TABLET PO PRN (02:34)
[2018-05-21] MEDS: IBUPROFEN 400 MG TABLET PO PRN (06:27)
[2018-05-21] MEDS: RisperiDONE 2 MG TABLET PO SCH ×2 (08:08→20:52)
[2018-05-21] MEDS: ASPIRIN 81 MG CHEWABLE TABLET PO SCH (08:08)
[2018-05-21] MEDS: AmLODIPine BESYLATE 10 MG TABLET PO SCH (08:08)
[2018-05-21] MEDS: NICOTINE 21 MG/24 HOUR PATCH TD SCH (08:08)
[2018-05-21] MEDS: SERTRALINE HCL 50 MG TABLET PO SCH (08:08)
[2018-05-21 08:10] VITALS: BP 117/76
[2018-05-21 16:28] VITALS: BP 129/89
[2018-05-21] MEDS: ZOLPIDEM TARTRATE 10 MG TABLET PO PRN (20:52)
[2018-05-22] MEDS: LORazepam 2 MG TABLET PO PRN ×2 (03:02→08:20)
[2018-05-22 08:19] VITALS: BP 112/69
[2018-05-22] MEDS: ACETAMINOPHEN 325 MG TABLET PO PRN (08:19)
[2018-05-22] MEDS: ASPIRIN 81 MG CHEWABLE TABLET PO SCH (08:20)
[2018-05-22] MEDS: AmLODIPine BESYLATE 10 MG TABLET PO SCH (08:20)
[2018-05-22] MEDS: NICOTINE 21 MG/24 HOUR PATCH TD SCH (08:20)
[2018-05-22] MEDS: RisperiDONE 2 MG TABLET PO SCH (08:20)
[2018-05-22] MEDS: SERTRALINE HCL 50 MG TABLET PO SCH (08:20)
[2018-05-22] MEDS ORDERED: NICO-703 TD (09:03)
[2018-05-22] MEDS: IBUPROFEN 400 MG TABLET PO PRN (12:20)
== END 2018-05-22 13:45 | disposition home or self-care (01) | DRG 750 ==
LOC: EMS 11:35 → 3EC 18:42
PROVIDERS: ADMIT Psychiatry & Neurology Psychiatry; ATTEND Psychiatry & Neurology Psychiatry
DX: F25.0 Schizoaffective disorder, bipolar type (principal); R45.851 Suicidal ideations; I10 Essential (primary) hypertension; F15.90 Other stimulant use, unspecified, uncomplicated; R45.87 Impulsiveness; F41.9 Anxiety disorder, unspecified; F19.90 Other psychoactive substance use, unspecified, uncomplicated; F99 Mental disorder, not otherwise specified
CPT/HCPCS: 83036; 84439; 84443; 87081; 99285; G0480

== ENCOUNTER 2018-05-23 16:21 | Inpatient (IN) | payer MEDICAID ==
[~2018-05-23] VITALS: Ht 190.5 cm; Wt 49.4 kg
[~2018-05-23 16:21] MED LIST changes: +NICO-703 TD; -RISP1 PO
[2018-05-23 17:35] LABS: BASOPHILS % (AUTO) 1.1 % (0.0-2.0); EOSINOPHILS % (AUTO) 2.7 % (1.0-6.0); HEMATOCRIT 39.4 % (41-53); HEMOGLOBIN 13.5 g/dL (13.5-17.5); LYMPHOCYTES # (AUTO) 2.8 K/uL (1.0-4.8); LYMPHOCYTES % (AUTO) 31.8 % (22.0-44.0); MEAN CORPUSCULAR HEMOGLOBIN 29.2 pg (26.0-34.0); MEAN CORPUSCULAR HGB CONC 34.4 G/dL (31.0-37.0); MEAN CORPUSCULAR VOLUME 85 fL (80-100); MONOCYTES # (AUTO) 0.5 K/uL (0.1-1.0); MONOCYTES % (AUTO) 6.1 % (2.0-9.0); NEUTROPHILS % (AUTO) 58.3 % (40.0-70.0); PLATELET COUNT (AUTO) 286 K/uL (150-450); RED BLOOD CELL COUNT(AUTO) 4.64 MIL/uL (4.50-5.90); RED CELL DISTRIBUTION WIDTH 13.3 % (11.5-14.5)
[2018-05-23 18:01] LABS: ANION GAP 11 mmol/L (8-16); CALCIUM, TOTAL 8.4 mg/dL (8.8-10.5); CARBON DIOXIDE 27 mmol/L (22-29); CHLORIDE 102 mmol/L (98-107); CREATININE 0.89 mg/dL (0.60-1.30); GLOMERULAR FILTR. RATE CALC > 60 mL/min (>60); GLUCOSE,RANDOM 119 mg/dL (70-110); POTASSIUM 3.7 mmol/L (3.5-5.1); SODIUM SERUM 140 mmol/L (136-145); UREA NITROGEN, BLOOD 10 mg/dL (7-18)
[2018-05-23 18:05] LABS: AMPHET/METH SCREEN,URINE NEGATIVE (NEGATIVE); BARBITURATE SCREEN, URINE NEGATIVE (NEGATIVE); BENZODIAZEPINES SCREEN,URINE NEGATIVE (NEGATIVE); CANNABINOID SCREEN,URINE NEGATIVE (NEGATIVE); COCAINE SCREEN,URINE NEGATIVE (NEGATIVE); METHADONE SCREEN, URINE NEGATIVE (NEGATIVE); OPIATE SCREEN,URINE NEGATIVE (NEGATIVE)
[2018-05-23 18:06] LABS: ALANINE AMINOTRANSFERASE 40 U/L (12-78); ALBUMIN 3.6 g/dL (3.4-5.0); ALKALINE PHOSPHATASE 51 U/L (46-116); ASPARTATE AMINOTRANSFERASE 17 U/L (15-37); BILIRUBIN,TOTAL 0.2 mg/dL (0.1-1.0); TOTAL PROTEIN, SERUM 6.9 g/dL (6.4-8.2)
[2018-05-23 18:06] LABS: PHENCYCLIDINE SCREEN,URINE NEGATIVE (NEGATIVE)
[2018-05-23] MEDS ORDERED: HALOPERIDOL 5 MG TABLET PO ONE (18:30)
[2018-05-23] MEDS ORDERED: DiphenhydrAMINE HCL 50 MG CAPSULE PO ONE (18:30)
[2018-05-23] MEDS ORDERED: LORazepam 2 MG TABLET PO ONE (18:45)
[2018-05-23] MEDS ORDERED: ACETAMINOPHEN 500 MG TABLET PO ONE (19:30)
[2018-05-23] MEDS: QUEtiapine FUMARATE 100 MG TABLET PO PRN (21:03)
[2018-05-24] MEDS: ZOLPIDEM TARTRATE 10 MG TABLET PO PRN ×2 (01:19→20:16)
[2018-05-24] MEDS: LORazepam 2 MG TABLET PO PRN ×4 (01:19→20:16)
[2018-05-24] MEDS: QUEtiapine FUMARATE 100 MG TABLET PO PRN ×4 (01:20→20:16)
[2018-05-24 03:04] LABS: CHOL/HDL RATIO 4.9 (4.2-7.3); CHOLESTEROL 147 mg/dL (131-200); HDL CHOLESTEROL 30 mg/dL (40-60); LDL CHOL (CALC.) 64 mg/dL (0-130); TRIGLYCERIDES 265 mg/dL (15-150)
[2018-05-24 13:30] VITALS: BP 134/80
[2018-05-24] MEDS ORDERED: RISP2 PO (13:55)
[2018-05-24] MEDS ORDERED: LOPERAMIDE HCL 2 MG CAPSULE PO PRN (14:00)
[2018-05-24] MEDS ORDERED: BENZOCAINE 10% 7 GM GEL TP PRN (14:00)
[2018-05-24] MEDS ORDERED: ONDANSETRON HCL 4 MG TABLET PO PRN (14:00)
[2018-05-24] MEDS ORDERED: MAGNESIUM HYDROXIDE SUSPENSION 30 ML UDCUP PO PRN (14:00)
[2018-05-24] MEDS ORDERED: CloNIDine HCL 0.1 MG TABLET PO PRN (14:00)
[2018-05-24] MEDS ORDERED: DOCUSATE SODIUM 100 MG CAPSULE PO PRN (14:00)
[2018-05-24] MEDS ORDERED: PETROLATUM,WHITE 71 GM JELLY TP PRN (14:00)
[2018-05-24] MEDS ORDERED: MAG HYDROX/AL HYDROX/SIMETH ES 30 ML SUSPENSION UDCUP PO PRN (14:00)
[2018-05-24] MEDS ORDERED: ALBUTEROL SULFATE HFA 90 MCG/PUFF 8 GM INHALER IH PRN (14:00)
[2018-05-24] MEDS: ACETAMINOPHEN 325 MG TABLET PO PRN (14:20)
[2018-05-24 15:19] VITALS: BP 136/78
[2018-05-24 16:00] VITALS: BP 135/82
[2018-05-24] MEDS: IBUPROFEN 400 MG TABLET PO PRN (17:21)
[2018-05-25 01:32] VITALS: BP 133/77
[2018-05-25] MEDS: IBUPROFEN 400 MG TABLET PO PRN ×2 (01:36→13:50)
[2018-05-25] MEDS: QUEtiapine FUMARATE 100 MG TABLET PO PRN ×3 (02:30→21:41)
[2018-05-25] MEDS: LORazepam 2 MG TABLET PO PRN ×3 (02:30→14:33)
[2018-05-25 08:15] VITALS: BP 140/70
[2018-05-25] MEDS: ASPIRIN 81 MG CHEWABLE TABLET PO SCH (08:39)
[2018-05-25] MEDS: NICOTINE 14 MG/24 HOUR PATCH TD SCH (08:39)
[2018-05-25] MEDS: AmLODIPine BESYLATE 10 MG TABLET PO SCH (08:39)
[2018-05-25 08:43] LABS: BASOPHILS % (AUTO) 0.9 % (0.0-2.0); EOSINOPHILS % (AUTO) 3.2 % (1.0-6.0); HEMOGLOBIN 13.8 g/dL (13.5-17.5); LYMPHOCYTES # (AUTO) 2.2 K/uL (1.0-4.8); LYMPHOCYTES % (AUTO) 29.7 % (22.0-44.0); MEAN CORPUSCULAR HEMOGLOBIN 29.4 pg (26.0-34.0); MEAN CORPUSCULAR HGB CONC 34.6 G/dL (31.0-37.0); MEAN CORPUSCULAR VOLUME 85 fL (80-100); MONOCYTES # (AUTO) 0.5 K/uL (0.1-1.0); NEUTROPHILS # (AUTO) 4.5 K/uL (1.8-7.7); NEUTROPHILS % (AUTO) 59.2 % (40.0-70.0); PLATELET COUNT (AUTO) 274 K/uL (150-450); RED CELL DISTRIBUTION WIDTH 13.5 % (11.5-14.5)
[2018-05-25 09:11] LABS: ALANINE AMINOTRANSFERASE 39 U/L (12-78); ALBUMIN 3.6 g/dL (3.4-5.0); ALKALINE PHOSPHATASE 47 U/L (46-116); ANION GAP 9 mmol/L (8-16); ASPARTATE AMINOTRANSFERASE 16 U/L (15-37); BILIRUBIN,TOTAL 0.3 mg/dL (0.1-1.0); CALCIUM, TOTAL 8.3 mg/dL (8.8-10.5); CARBON DIOXIDE 25 mmol/L (22-29); CHLORIDE 102 mmol/L (98-107); CHOL/HDL RATIO 5.4 (4.2-7.3); CHOLESTEROL 147 mg/dL (131-200); GLOMERULAR FILTR. RATE CALC > 60 mL/min (>60); GLUCOSE,RANDOM 145 mg/dL (70-110); HDL CHOLESTEROL 27 mg/dL (40-60); LDL CHOL (CALC.) 41 mg/dL (0-130); POTASSIUM 3.9 mmol/L (3.5-5.1); SODIUM SERUM 136 mmol/L (136-145); THYROID STIMULATING HORMONE 1.09 uIU/mL (0.36-3.74); TOTAL PROTEIN, SERUM 6.7 g/dL (6.4-8.2); TRIGLYCERIDES 394 mg/dL (15-150); UREA NITROGEN, BLOOD 14 mg/dL (7-18)
[2018-05-25 11:12] LABS: HEMOGLOBIN A1C 5.1 % (4.5-6.2)
[2018-05-25 13:50] VITALS: BP 136/74
[2018-05-25 14:50] VITALS: BP 130/72
[2018-05-25 16:29] VITALS: BP 123/74
[2018-05-25] MEDS: ACETAMINOPHEN 325 MG TABLET PO PRN (21:00)
[2018-05-25] MEDS ORDERED: RisperiDONE 3 MG TABLET PO ONE (21:00)
[2018-05-25] MEDS ORDERED: SERTRALINE HCL 100 MG TABLET PO ONE (21:00)
[2018-05-25] MEDS: ZOLPIDEM TARTRATE 10 MG TABLET PO PRN (21:41)
[2018-05-26 02:01] VITALS: BP 132/82
[2018-05-26] MEDS: IBUPROFEN 400 MG TABLET PO PRN ×2 (02:01→08:39)
[2018-05-26] MEDS: AmLODIPine BESYLATE 10 MG TABLET PO SCH (08:39)
[2018-05-26] MEDS: SERTRALINE HCL 100 MG TABLET PO SCH (08:39)
[2018-05-26] MEDS: ASPIRIN 81 MG CHEWABLE TABLET PO SCH (08:39)
[2018-05-26 08:40] VITALS: BP 135/76
[2018-05-26] MEDS: LORazepam 2 MG TABLET PO PRN ×3 (08:40→20:38)
[2018-05-26] MEDS: RisperiDONE 3 MG TABLET PO SCH ×2 (08:40→16:25)
[2018-05-26] MEDS: NICOTINE 14 MG/24 HOUR PATCH TD SCH (08:43)
[2018-05-26 09:40] VITALS: BP 130/70
[2018-05-26 11:09] VITALS: BP 134/74
[2018-05-26] MEDS: ACETAMINOPHEN 325 MG TABLET PO PRN ×2 (11:09→20:39)
[2018-05-26 12:08] VITALS: BP 137/76
[2018-05-26 16:00] VITALS: BP 140/84
[2018-05-26] MEDS: QUEtiapine FUMARATE 100 MG TABLET PO PRN ×2 (16:25→20:38)
[2018-05-26] MEDS: ZOLPIDEM TARTRATE 10 MG TABLET PO PRN (20:38)
[2018-05-27 02:09] VITALS: BP 135/81
[2018-05-27] MEDS: QUEtiapine FUMARATE 100 MG TABLET PO PRN ×3 (02:11→20:58)
[2018-05-27] MEDS: IBUPROFEN 400 MG TABLET PO PRN ×2 (02:12→12:46)
[2018-05-27 08:31] VITALS: BP 130/74
[2018-05-27] MEDS: RisperiDONE 3 MG TABLET PO SCH ×2 (08:47→16:36)
[2018-05-27] MEDS: ASPIRIN 81 MG CHEWABLE TABLET PO SCH (08:47)
[2018-05-27] MEDS: AmLODIPine BESYLATE 10 MG TABLET PO SCH (08:47)
[2018-05-27] MEDS: SERTRALINE HCL 100 MG TABLET PO SCH (08:48)
[2018-05-27] MEDS: NICOTINE 14 MG/24 HOUR PATCH TD SCH (08:48)
[2018-05-27 12:46] VITALS: BP 140/77
[2018-05-27] MEDS: LORazepam 2 MG TABLET PO PRN ×2 (12:47→20:58)
[2018-05-27 16:00] VITALS: BP 121/73
[2018-05-27] MEDS: ZOLPIDEM TARTRATE 10 MG TABLET PO PRN (20:58)
[2018-05-28 02:53] VITALS: BP 125/75
[2018-05-28] MEDS: IBUPROFEN 400 MG TABLET PO PRN ×3 (03:01→22:47)
[2018-05-28] MEDS: QUEtiapine FUMARATE 100 MG TABLET PO PRN ×2 (05:19→21:41)
[2018-05-28 08:27] VITALS: BP 121/69
[2018-05-28] MEDS: ASPIRIN 81 MG CHEWABLE TABLET PO SCH (08:27)
[2018-05-28] MEDS: AmLODIPine BESYLATE 10 MG TABLET PO SCH (08:27)
[2018-05-28] MEDS: SERTRALINE HCL 100 MG TABLET PO SCH (08:27)
[2018-05-28] MEDS: NICOTINE 14 MG/24 HOUR PATCH TD SCH (08:27)
[2018-05-28] MEDS: RisperiDONE 3 MG TABLET PO SCH ×2 (08:27→16:47)
[2018-05-28] MEDS: LORazepam 2 MG TABLET PO PRN ×2 (10:25→21:41)
[2018-05-28 12:14] VITALS: BP 132/74
[2018-05-28 16:00] VITALS: BP 114/67
[2018-05-28] MEDS: DIVALPROEX SODIUM 500 MG ER TABLET PO SCH (17:23)
[2018-05-29 00:10] VITALS: BP 116/72
[2018-05-29] MEDS: IBUPROFEN 400 MG TABLET PO PRN (06:52)
[2018-05-29 07:57] VITALS: BP 118/78
[2018-05-29] MEDS: DIVALPROEX SODIUM 500 MG ER TABLET PO SCH ×2 (08:27→16:16)
[2018-05-29] MEDS: NICOTINE 14 MG/24 HOUR PATCH TD SCH (08:27)
[2018-05-29] MEDS: AmLODIPine BESYLATE 10 MG TABLET PO SCH (08:27)
[2018-05-29] MEDS: SERTRALINE HCL 100 MG TABLET PO SCH (08:27)
[2018-05-29] MEDS: RisperiDONE 3 MG TABLET PO SCH ×2 (08:27→16:14)
[2018-05-29] MEDS: ASPIRIN 81 MG CHEWABLE TABLET PO SCH (08:27)
[2018-05-29] MEDS: QUEtiapine FUMARATE 100 MG TABLET PO PRN ×2 (08:31→21:22)
[2018-05-29] MEDS: LORazepam 2 MG TABLET PO PRN ×2 (09:23→21:22)
[2018-05-29 16:29] VITALS: BP 137/80
[2018-05-30 06:32] VITALS: BP 130/75
[2018-05-30] MEDS: IBUPROFEN 400 MG TABLET PO PRN ×2 (06:41→16:40)
[2018-05-30] MEDS: AmLODIPine BESYLATE 10 MG TABLET PO SCH (08:45)
[2018-05-30] MEDS: SERTRALINE HCL 100 MG TABLET PO SCH (08:45)
[2018-05-30] MEDS: ASPIRIN 81 MG CHEWABLE TABLET PO SCH (08:45)
[2018-05-30] MEDS: RisperiDONE 3 MG TABLET PO SCH ×2 (08:45→16:29)
[2018-05-30] MEDS: NICOTINE 14 MG/24 HOUR PATCH TD SCH (08:46)
[2018-05-30] MEDS: LORazepam 2 MG TABLET PO PRN ×2 (08:48→13:45)
[2018-05-30 08:52] VITALS: BP 126/78
[2018-05-30] MEDS: DIVALPROEX SODIUM 500 MG ER TABLET PO SCH (09:00)
[2018-05-30 16:15] VITALS: BP 135/84
[2018-05-30] MEDS: LITHIUM CARBONATE 300 MG CAPSULE PO SCH (16:29)
[2018-05-30] MEDS: QUEtiapine FUMARATE 100 MG TABLET PO PRN (18:14)
[2018-05-31] MEDS: QUEtiapine FUMARATE 100 MG TABLET PO PRN ×3 (00:54→22:11)
[2018-05-31 00:56] VITALS: BP 133/75
[2018-05-31] MEDS: ZOLPIDEM TARTRATE 10 MG TABLET PO PRN (02:28)
[2018-05-31] MEDS: IBUPROFEN 400 MG TABLET PO PRN ×2 (06:45→17:37)
[2018-05-31 07:45] VITALS: BP 142/82
[2018-05-31 08:11] VITALS: BP 161/76
[2018-05-31] MEDS: RisperiDONE 3 MG TABLET PO SCH ×2 (08:21→16:14)
[2018-05-31] MEDS: LITHIUM CARBONATE 300 MG CAPSULE PO SCH ×2 (08:22→16:14)
[2018-05-31] MEDS: AmLODIPine BESYLATE 10 MG TABLET PO SCH (08:22)
[2018-05-31] MEDS: SERTRALINE HCL 100 MG TABLET PO SCH (08:22)
[2018-05-31] MEDS: ASPIRIN 81 MG CHEWABLE TABLET PO SCH (08:22)
[2018-05-31] MEDS: NICOTINE 14 MG/24 HOUR PATCH TD SCH (08:23)
[2018-05-31] MEDS: LORazepam 2 MG TABLET PO PRN ×2 (09:15→17:33)
[2018-05-31] MEDS ORDERED: HydrOXYzine PAMOATE 25 MG CAPSULE PO PRN (12:30)
[2018-05-31 16:37] VITALS: BP 140/94
[2018-05-31 17:37] VITALS: BP 130/80
[2018-06-01] MEDS: ZOLPIDEM TARTRATE 10 MG TABLET PO PRN ×2 (00:02→21:21)
[2018-06-01 00:05] VITALS: BP 131/86
[2018-06-01] MEDS: LORazepam 2 MG TABLET PO PRN ×2 (00:32→10:12)
[2018-06-01] MEDS: AmLODIPine BESYLATE 10 MG TABLET PO SCH (08:32)
[2018-06-01] MEDS: LITHIUM CARBONATE 300 MG CAPSULE PO SCH ×2 (08:32→16:05)
[2018-06-01] MEDS: SERTRALINE HCL 100 MG TABLET PO SCH (08:32)
[2018-06-01] MEDS: ASPIRIN 81 MG CHEWABLE TABLET PO SCH (08:32)
[2018-06-01] MEDS: RisperiDONE 3 MG TABLET PO SCH ×2 (08:32→16:05)
[2018-06-01 08:33] VITALS: BP 116/68
[2018-06-01] MEDS: NICOTINE 14 MG/24 HOUR PATCH TD SCH (08:33)
[2018-06-01 13:22] VITALS: BP 140/88
[2018-06-01] MEDS: IBUPROFEN 400 MG TABLET PO PRN (13:25)
[2018-06-01 16:09] VITALS: BP 122/84
[2018-06-01] MEDS: QUEtiapine FUMARATE 100 MG TABLET PO PRN (20:27)
[2018-06-01] MEDS ORDERED: TraZODone HCL 100 MG TABLET PO SCH (21:00)
[2018-06-02 05:32] VITALS: BP 125/84
[2018-06-02] MEDS: LORazepam 2 MG TABLET PO PRN ×2 (05:35→10:42)
[2018-06-02] MEDS: IBUPROFEN 400 MG TABLET PO PRN (05:35)
[2018-06-02 08:06] VITALS: BP 124/71
[2018-06-02] MEDS: SERTRALINE HCL 100 MG TABLET PO SCH (08:16)
[2018-06-02] MEDS: AmLODIPine BESYLATE 10 MG TABLET PO SCH (08:16)
[2018-06-02] MEDS: RisperiDONE 3 MG TABLET PO SCH (08:17)
[2018-06-02] MEDS: ASPIRIN 81 MG CHEWABLE TABLET PO SCH (08:17)
[2018-06-02] MEDS: NICOTINE 14 MG/24 HOUR PATCH TD SCH (08:17)
[2018-06-02] MEDS: LITHIUM CARBONATE 300 MG CAPSULE PO SCH (08:17)
[2018-06-02 08:37] LABS: EOSINOPHILS % (AUTO) 3.5 % (1.0-6.0); HEMATOCRIT 40.8 % (41-53); HEMOGLOBIN 14.1 g/dL (13.5-17.5); LYMPHOCYTES # (AUTO) 2.5 K/uL (1.0-4.8); LYMPHOCYTES % (AUTO) 26.8 % (22.0-44.0); MEAN CORPUSCULAR HEMOGLOBIN 29.3 pg (26.0-34.0); MEAN CORPUSCULAR HGB CONC 34.5 G/dL (31.0-37.0); MEAN CORPUSCULAR VOLUME 85 fL (80-100); MONOCYTES # (AUTO) 0.6 K/uL (0.1-1.0); MONOCYTES % (AUTO) 6.8 % (2.0-9.0); NEUTROPHILS # (AUTO) 5.7 K/uL (1.8-7.7); NEUTROPHILS % (AUTO) 61.9 % (40.0-70.0); PLATELET COUNT (AUTO) 265 K/uL (150-450); RED BLOOD CELL COUNT(AUTO) 4.81 MIL/uL (4.50-5.90); RED CELL DISTRIBUTION WIDTH 13.5 % (11.5-14.5)
[2018-06-02 09:47] LABS: CHLORIDE 103 mmol/L (98-107); POTASSIUM 4.1 mmol/L (3.5-5.1); SODIUM SERUM 138 mmol/L (136-145)
[2018-06-02 09:48] LABS: ALANINE AMINOTRANSFERASE 33 U/L (12-78); ALBUMIN 3.6 g/dL (3.4-5.0); ALKALINE PHOSPHATASE 46 U/L (46-116); ANION GAP 8 mmol/L (8-16); ASPARTATE AMINOTRANSFERASE 14 U/L (15-37); BILIRUBIN,TOTAL 0.3 mg/dL (0.1-1.0); CALCIUM, TOTAL 8.5 mg/dL (8.8-10.5); CARBON DIOXIDE 27 mmol/L (22-29); CREATININE 0.95 mg/dL (0.60-1.30); GLOMERULAR FILTR. RATE CALC > 60 mL/min (>60); GLUCOSE,RANDOM 82 mg/dL (70-110); TOTAL PROTEIN, SERUM 6.9 g/dL (6.4-8.2); UREA NITROGEN, BLOOD 12 mg/dL (7-18)
[2018-06-02] MEDS ORDERED: SERT100T12 PO (10:19)
[2018-06-02] MEDS ORDERED: LITH300C3 PO (10:19)
[2018-06-02] MEDS ORDERED: RISP3 PO (10:19)
[2018-06-02] MEDS ORDERED: TRAZ-220 PO (10:19)
[2018-06-02 11:02] LABS: LITHIUM 0.25 mmol/L (0.60-1.20)
== END 2018-06-02 13:30 | disposition home or self-care (01) | DRG 750 ==
LOC: EEVIPCON 16:22 → EMS 16:22 → B3A 05-24 11:41 → B2S 05-31 15:15
PROVIDERS: ADMIT Psychiatry & Neurology Psychiatry; ATTEND Psychiatry & Neurology Psychiatry
DX: F25.0 Schizoaffective disorder, bipolar type (principal); I10 Essential (primary) hypertension; F32.9 Major depressive disorder, single episode, unspecified; F14.90 Cocaine use, unspecified, uncomplicated; F15.90 Other stimulant use, unspecified, uncomplicated; F41.9 Anxiety disorder, unspecified; R45.87 Impulsiveness; R45.84 Anhedonia; F19.90 Other psychoactive substance use, unspecified, uncomplicated; E78.5 Hyperlipidemia, unspecified; Z87.891 Personal history of nicotine dependence; Z91.5 Personal history of self-harm
CPT/HCPCS: 83036; 84443; 87081; 99285; G0480; Q0162

== ENCOUNTER 2019-01-07 19:03 | Emergency (ER) | payer MEDICAID, OTHER ==
[~2019-01-07] VITALS: Ht 193 cm; Wt 120.5 kg
[~2019-01-07 19:03] MED LIST changes: +ALLO100T PO; -ASPI-556 PO; +ATOR10TA84 PO; +DIVA-78 PO; -NICO-703 TD; +PALI234D IM; -RISP1TAB89 PO; +SERT100T12 PO; -SERT50TA12 PO; +TRAZ-219 PO
[2019-01-07 22:26] LABS: BASOPHILS % (AUTO) 1.1 % (0.0-2.0); EOSINOPHILS % (AUTO) 1.9 % (1.0-6.0); HEMATOCRIT 39.8 % (41-53); HEMOGLOBIN 13.1 g/dL (13.5-17.5); LYMPHOCYTES # (AUTO) 2.5 K/uL (1.0-4.8); LYMPHOCYTES % (AUTO) 20.4 % (22.0-44.0); MEAN CORPUSCULAR HEMOGLOBIN 27.2 pg (26.0-34.0); MEAN CORPUSCULAR VOLUME 82 fL (80-100); MONOCYTES # (AUTO) 1.2 K/uL (0.1-1.0); MONOCYTES % (AUTO) 9.3 % (2.0-9.0); NEUTROPHILS # (AUTO) 8.4 K/uL (1.8-7.7); NEUTROPHILS % (AUTO) 67.3 % (40.0-70.0); RED BLOOD CELL COUNT(AUTO) 4.83 MIL/uL (4.50-5.90); RED CELL DISTRIBUTION WIDTH 13.6 % (11.5-14.5)
[2019-01-07 22:31] LABS: ANION GAP 8 mmol/L (8-16); CALCIUM, TOTAL 9.3 mg/dL (8.8-10.5); CARBON DIOXIDE 25 mmol/L (22-29); CHLORIDE 101 mmol/L (98-107); CREATININE 1.05 mg/dL (0.60-1.30); GLOMERULAR FILTR. RATE CALC > 60 mL/min (>60); GLUCOSE,RANDOM 101 mg/dL (70-110); PLATELET COUNT (AUTO) 349 K/uL (150-450); POTASSIUM 3.8 mmol/L (3.5-5.1); SODIUM SERUM 134 mmol/L (136-145); UREA NITROGEN, BLOOD 14 mg/dL (7-18)
[2019-01-07 22:37] LABS: ALANINE AMINOTRANSFERASE 44 U/L (12-78); ALBUMIN 3.7 g/dL (3.4-5.0); ALKALINE PHOSPHATASE 69 U/L (46-116); ASPARTATE AMINOTRANSFERASE 33 U/L (15-37); BILIRUBIN,TOTAL 0.4 mg/dL (0.1-1.0); TOTAL PROTEIN, SERUM 7.9 g/dL (6.4-8.2)
[2019-01-07 22:40] LABS: VALPROIC ACID < 3 mcg/mL (50-100)
[2019-01-07] MEDS ORDERED: GABA-533 PO (23:11)
[2019-01-07] MEDS ORDERED: CHLO50 PO (23:11)
[2019-01-07] MEDS ORDERED: QUET300T2 PO (23:11)
[2019-01-07] MEDS ORDERED: DSS100 PO (23:11)
[2019-01-07] MEDS ORDERED: LORA2TAB2 PO (23:11)
[2019-01-08] MEDS ORDERED: QUEtiapine FUMARATE 300 MG TABLET PO ONE (01:30)
[2019-01-08] MEDS ORDERED: QUEtiapine FUMARATE 100 MG TABLET PO ONE (01:30)
[2019-01-08] MEDS ORDERED: ChlorproMAZINE HCL 25 MG TABLET PO ONE (02:15)
[2019-01-08] MEDS ORDERED: LORazepam 2 MG TABLET PO ONE (02:15)
[2019-01-08] MEDS ORDERED: ChlorproMAZINE HCL 50 MG TABLET PO ONE (02:30)
[2019-01-08 03:11] VITALS: BP 130/80
== END 2019-01-08 04:46 | disposition home or self-care (01) ==
LOC: EMS 19:04
DX: S00.03XA Contusion of scalp, initial encounter (principal); F25.9 Schizoaffective disorder, unspecified; F17.210 Nicotine dependence, cigarettes, uncomplicated; F12.90 Cannabis use, unspecified, uncomplicated; F15.90 Other stimulant use, unspecified, uncomplicated; F14.90 Cocaine use, unspecified, uncomplicated; F31.9 Bipolar disorder, unspecified; Z88.8 Allergy status to other drugs, medicaments and biological substances; Z79.899 Other long term (current) drug therapy; Y04.8XXA Assault by other bodily force, initial encounter; Y93.89 Activity, other specified; Y92.89 Other specified places as the place of occurrence of the external cause; Y99.8 Other external cause status
CPT/HCPCS: 36415; 70450; 80053; 80164; 85025; 99285; G0480

== ENCOUNTER 2019-01-12 10:26 | Inpatient (IN) | payer MEDICAID, OTHER ==
[~2019-01-12] VITALS: Ht 193 cm; Wt 111.2 kg
[~2019-01-12 10:26] MED LIST changes: +CHLO50 PO; -DIVA-78 PO; +DSS100 PO; +GABA-533 PO; +LORA2TAB2 PO; -PALI234D IM; +QUET300T2 PO; -TRAZ-219 PO
[2019-01-12] MEDS ORDERED: ALLO100T PO (10:46)
[2019-01-12] MEDS ORDERED: CHLO100T24 PO (10:46)
[2019-01-12] MEDS ORDERED: ZOLPIDEM TARTRATE 10 MG TABLET PO PRN (11:45)
[2019-01-12] MEDS ORDERED: OLANZapine 5 MG RAPDIS TABLET PO PRN (11:45)
[2019-01-12 12:02] LABS: BASOPHILS % (AUTO) 0.8 % (0.0-2.0); EOSINOPHILS % (AUTO) 1.7 % (1.0-6.0); HEMATOCRIT 41.1 % (41-53); HEMOGLOBIN 13.7 g/dL (13.5-17.5); LYMPHOCYTES # (AUTO) 2.2 K/uL (1.0-4.8); LYMPHOCYTES % (AUTO) 19.4 % (22.0-44.0); MEAN CORPUSCULAR HEMOGLOBIN 27.5 pg (26.0-34.0); MEAN CORPUSCULAR HGB CONC 33.4 G/dL (31.0-37.0); MEAN CORPUSCULAR VOLUME 82 fL (80-100); MONOCYTES # (AUTO) 0.7 K/uL (0.1-1.0); MONOCYTES % (AUTO) 6.5 % (2.0-9.0); NEUTROPHILS # (AUTO) 8.1 K/uL (1.8-7.7); NEUTROPHILS % (AUTO) 71.6 % (40.0-70.0); PLATELET COUNT (AUTO) 306 K/uL (150-450); RED CELL DISTRIBUTION WIDTH 13.7 % (11.5-14.5)
[2019-01-12 12:06] LABS: ANION GAP 11 mmol/L (8-16); CARBON DIOXIDE 25 mmol/L (22-29); CHLORIDE 101 mmol/L (98-107); GLOMERULAR FILTR. RATE CALC > 60 mL/min (>60); GLUCOSE,RANDOM 92 mg/dL (70-110); POTASSIUM 4.2 mmol/L (3.5-5.1); SODIUM SERUM 137 mmol/L (136-145); UREA NITROGEN, BLOOD 15 mg/dL (7-18)
[2019-01-12 12:12] LABS: ALANINE AMINOTRANSFERASE 49 U/L (12-78); ALBUMIN 3.9 g/dL (3.4-5.0); ALKALINE PHOSPHATASE 69 U/L (46-116); ASPARTATE AMINOTRANSFERASE 23 U/L (15-37); BILIRUBIN,TOTAL 0.3 mg/dL (0.1-1.0)
[2019-01-12 12:26] LABS: AMPHET/METH SCREEN,URINE NEGATIVE (NEGATIVE); BARBITURATE SCREEN, URINE NEGATIVE (NEGATIVE); BENZODIAZEPINES SCREEN,URINE NEGATIVE (NEGATIVE); CANNABINOID SCREEN,URINE NEGATIVE (NEGATIVE); COCAINE SCREEN,URINE NEGATIVE (NEGATIVE); METHADONE SCREEN, URINE NEGATIVE (NEGATIVE); OPIATE SCREEN,URINE NEGATIVE (NEGATIVE); PHENCYCLIDINE SCREEN,URINE NEGATIVE (NEGATIVE)
[2019-01-12] MEDS ORDERED: LORazepam 2 MG TABLET PO ONE (13:30)
[2019-01-12 18:05] VITALS: BP 126/82
[2019-01-12] MEDS: QUEtiapine FUMARATE 200 MG TABLET PO SCH (20:08)
[2019-01-12] MEDS: ATORVASTATIN CALCIUM 20 MG TABLET PO SCH (20:40)
[2019-01-13 07:07] LABS: CHOL/HDL RATIO 4.4 (4.2-7.3)
[2019-01-13 08:06] VITALS: BP 136/89
[2019-01-13] MEDS: GABAPENTIN 400 MG CAPSULE PO SCH ×3 (09:11→16:04)
[2019-01-13] MEDS: ChlorproMAZINE HCL 100 MG TABLET PO SCH ×3 (09:11→16:04)
[2019-01-13] MEDS: ALLOPURINOL 100 MG TABLET PO SCH (09:11)
[2019-01-13] MEDS: LORazepam 2 MG TABLET PO PRN (09:12)
[2019-01-13] MEDS: DOCUSATE SODIUM 100 MG CAPSULE PO SCH (09:12)
[2019-01-13] MEDS: AmLODIPine BESYLATE 5 MG TABLET PO SCH (09:12)
[2019-01-13] MEDS: NICOTINE 14 MG/24 HOUR PATCH TD SCH (09:15)
[2019-01-13 15:22] LABS: APPEARANCE,URINE CLEAR (CLEAR); BILIRUBIN,URINE NEGATIVE (NEGATIVE); GLUCOSE, URINE (UA) NEGATIVE (NEGATIVE); KETONES,URINE NEGATIVE (NEGATIVE); LEUKOCYTE ESTERASE ,URINE NEGATIVE (NEGATIVE); NITRATE,URINE NEGATIVE (NEGATIVE); OCCULT BLOOD,URINE NEGATIVE (NEGATIVE); PH,URINE 7.5 (5.0-8.0); PROTEIN,URINE NEGATIVE (NEGATIVE); UROBILINOGEN,URINE 0.2 mg/dL (<=1.0)
[2019-01-13 18:18] VITALS: BP 163/84
[2019-01-13] MEDS: QUEtiapine FUMARATE 200 MG TABLET PO SCH (20:08)
[2019-01-13] MEDS: ATORVASTATIN CALCIUM 20 MG TABLET PO SCH (20:08)
[2019-01-13] MEDS ORDERED: CloNIDine HCL 0.1 MG TABLET PO PRN (22:15)
[2019-01-14] MEDS: NICOTINE 14 MG/24 HOUR PATCH TD SCH (08:03)
[2019-01-14] MEDS: LORazepam 2 MG TABLET PO PRN (08:04)
[2019-01-14] MEDS: DOCUSATE SODIUM 100 MG CAPSULE PO SCH (08:04)
[2019-01-14] MEDS: ChlorproMAZINE HCL 100 MG TABLET PO SCH ×3 (08:04→16:31)
[2019-01-14] MEDS: GABAPENTIN 400 MG CAPSULE PO SCH ×3 (08:04→16:27)
[2019-01-14] MEDS: ALLOPURINOL 100 MG TABLET PO SCH (08:04)
[2019-01-14] MEDS: AmLODIPine BESYLATE 5 MG TABLET PO SCH (08:04)
[2019-01-14 08:44] VITALS: BP 146/93
[2019-01-14 17:00] VITALS: BP 141/88
[2019-01-14] MEDS ORDERED: AMLO-511 PO (17:15)
[2019-01-14] MEDS ORDERED: ATOR20TA86 PO (17:15)
[2019-01-14] MEDS: ATORVASTATIN CALCIUM 20 MG TABLET PO SCH (20:22)
[2019-01-14] MEDS: QUEtiapine FUMARATE 200 MG TABLET PO SCH (20:22)
[2019-01-15 00:29] VITALS: BP 116/88
[2019-01-15 01:45] VITALS: BP 135/91
[2019-01-15] MEDS: LORazepam 2 MG TABLET PO PRN ×2 (01:51→08:52)
[2019-01-15 08:29] VITALS: BP 141/85
[2019-01-15] MEDS: DOCUSATE SODIUM 100 MG CAPSULE PO SCH (08:49)
[2019-01-15] MEDS: AmLODIPine BESYLATE 5 MG TABLET PO SCH (08:49)
[2019-01-15] MEDS: GABAPENTIN 400 MG CAPSULE PO SCH ×3 (08:49→16:10)
[2019-01-15] MEDS: ALLOPURINOL 100 MG TABLET PO SCH (08:50)
[2019-01-15] MEDS: SERTRALINE HCL 100 MG TABLET PO SCH (08:50)
[2019-01-15] MEDS: ChlorproMAZINE HCL 100 MG TABLET PO SCH ×3 (08:50→16:11)
[2019-01-15] MEDS: NICOTINE 14 MG/24 HOUR PATCH TD SCH (08:53)
[2019-01-15 16:31] VITALS: BP 123/72
[2019-01-15] MEDS: ATORVASTATIN CALCIUM 20 MG TABLET PO SCH (20:17)
[2019-01-15] MEDS: QUEtiapine FUMARATE 200 MG TABLET PO SCH (20:17)
[2019-01-16 01:48] VITALS: BP 116/79
[2019-01-16 08:30] VITALS: BP 120/77
[2019-01-16] MEDS: AmLODIPine BESYLATE 5 MG TABLET PO SCH (08:31)
[2019-01-16] MEDS: GABAPENTIN 400 MG CAPSULE PO SCH ×3 (08:31→16:16)
[2019-01-16] MEDS: SERTRALINE HCL 100 MG TABLET PO SCH (08:32)
[2019-01-16] MEDS: LORazepam 2 MG TABLET PO PRN (08:32)
[2019-01-16] MEDS: DOCUSATE SODIUM 100 MG CAPSULE PO SCH (08:32)
[2019-01-16] MEDS: ChlorproMAZINE HCL 100 MG TABLET PO SCH ×3 (08:32→16:16)
[2019-01-16] MEDS: ALLOPURINOL 100 MG TABLET PO SCH (08:32)
[2019-01-16] MEDS: NICOTINE 14 MG/24 HOUR PATCH TD SCH (08:34)
[2019-01-16 16:35] VITALS: BP 130/74
[2019-01-16] MEDS: ATORVASTATIN CALCIUM 20 MG TABLET PO SCH (20:49)
[2019-01-16] MEDS: QUEtiapine FUMARATE 200 MG TABLET PO SCH (20:50)
[2019-01-17 08:05] VITALS: BP 142/94
[2019-01-17] MEDS: AmLODIPine BESYLATE 5 MG TABLET PO SCH (08:32)
[2019-01-17] MEDS: ChlorproMAZINE HCL 100 MG TABLET PO SCH ×2 (08:32→13:28)
[2019-01-17] MEDS: DOCUSATE SODIUM 100 MG CAPSULE PO SCH (08:32)
[2019-01-17] MEDS: GABAPENTIN 400 MG CAPSULE PO SCH ×2 (08:32→13:28)
[2019-01-17] MEDS: SERTRALINE HCL 100 MG TABLET PO SCH (08:32)
[2019-01-17] MEDS: ALLOPURINOL 100 MG TABLET PO SCH (08:32)
[2019-01-17] MEDS: NICOTINE 14 MG/24 HOUR PATCH TD SCH (08:33)
[2019-01-17] MEDS: LORazepam 2 MG TABLET PO PRN (08:35)
[2019-01-17] MEDS ORDERED: QUET200T PO ×2 (13:58→13:59)
[2019-01-17] MEDS ORDERED: SERT100T12 PO (14:00)
== END 2019-01-17 16:15 | DRG 750 ==
LOC: EMS 10:28 → 3EI 17:46
PROVIDERS: ADMIT Psychiatry & Neurology Psychiatry; ATTEND Psychiatry & Neurology Psychiatry
DX: F20.0 Paranoid schizophrenia (principal); E78.5 Hyperlipidemia, unspecified; F17.210 Nicotine dependence, cigarettes, uncomplicated; G24.9 Dystonia, unspecified; I10 Essential (primary) hypertension; M10.9 Gout, unspecified; K59.00 Constipation, unspecified; Z82.49 Family history of ischemic heart disease and other diseases of the circulatory system
CPT/HCPCS: 87081; 99406; G0480

== ENCOUNTER 2024-10-28 20:34 | Inpatient (IN) | payer MEDICAID ==
[~2024-10-28] VITALS: Ht 190.5 cm; Wt 102.1 kg
[~2024-10-28 20:34] MED LIST changes: +ALLO-97 PO; -ALLO100T PO; +AMLO-257 PO; -AMLO-512 PO; -ATOR10TA84 PO; +ATOR20TA PO; +CHLO100T42 PO; -CHLO50 PO; +GABA-1201 PO; -GABA-533 PO; -LORA2TAB2 PO; +QUET200T PO; -QUET300T2 PO; +SERT-162 PO; -SERT100T12 PO
[2024-10-28 21:19] VITALS: BP 166/96; PULSE 74; RESP 17; TEMP 98; O2SAT 100
[2024-10-29 08:06] VITALS: BP 139/84; PULSE 89; RESP 18; TEMP 98.2; O2SAT 98
[2024-10-29] MEDS ORDERED: CloNIDine HCL 0.1 MG TABLET PO PRN (08:15)
[2024-10-29] MEDS ORDERED: GuaiFENesin/D-METHORPHAN [SUGAR-FREE] 200-20MG/10 ML SYRUP UDCUP PO PRN (08:15)
[2024-10-29] MEDS ORDERED: PETROLATUM,WHITE 28 GM JELLY TP PRN (08:15)
[2024-10-29] MEDS ORDERED: DOCUSATE SODIUM 100 MG CAPSULE PO PRN (08:15)
[2024-10-29] MEDS ORDERED: MAG HYDROX/ALUMINUM HYD/SIMETH ES 30 ML SUSPENSION UDCUP PO PRN (08:15)
[2024-10-29] MEDS ORDERED: ALBUTEROL SULFATE HFA 90 MCG/PUFF 8 GM INHALER IH PRN (08:15)
[2024-10-29] MEDS ORDERED: MAGNESIUM HYDROXIDE SUSPENSION 30 ML UDCUP PO PRN (08:15)
[2024-10-29] MEDS ORDERED: NICOTINE 14 MG/24 HOUR PATCH TD PRN (08:15)
[2024-10-29] MEDS: ALLOPURINOL 100 MG TABLET PO SCH (09:00)
[2024-10-29] MEDS: LORazepam 2 MG TABLET PO PRN (10:53)
[2024-10-29] MEDS: AmLODIPine BESYLATE 5 MG TABLET PO SCH (10:53)
[2024-10-29] MEDS: SERTRALINE HCL 50 MG TABLET PO SCH (10:53)
[2024-10-29] MEDS ORDERED: DOCU-385 PO (16:04)
[2024-10-29] MEDS: INFLUENZA VIRUS VACCINE TVS (6MO+) 2024-25/PF 45 MCG/0.5 ML SYRINGE IM. ONE (19:03)
[2024-10-29 20:40] VITALS: BP 140/81; PULSE 79; RESP 18; TEMP 97.4; O2SAT 98
[2024-10-29] MEDS: QUEtiapine FUMARATE 200 MG TABLET PO SCH (20:59)
[2024-10-29] MEDS ORDERED: QUEtiapine FUMARATE 200 MG TABLET PO SCH (21:00)
[2024-10-29] MEDS: ZOLPIDEM TARTRATE 10 MG TABLET PO PRN (21:00)
[2024-10-29] MEDS: ATORVASTATIN CALCIUM 20 MG TABLET PO SCH (21:00)
[2024-10-30 10:49] VITALS: RESP 18
[2024-10-30 20:32] VITALS: BP 114/66; PULSE 70; RESP 18; TEMP 98; O2SAT 99
[2024-10-31 08:02] VITALS: RESP 18
[2024-10-31 09:07] VITALS: BP 134/75; PULSE 76; RESP 18; TEMP 97.5; O2SAT 98
[2024-10-31 20:34] VITALS: BP 129/74; PULSE 81; RESP 18; TEMP 98; O2SAT 97
[2024-11-01 08:11] VITALS: BP 113/68; PULSE 72; RESP 15; TEMP 97.7; O2SAT 96
[2024-11-01 20:08] VITALS: BP 113/68; PULSE 72; RESP 16; TEMP 97.7; O2SAT 96
[2024-11-02 08:51] LABS: APPEARANCE,URINE CLEAR (CLEAR); BILIRUBIN,URINE NEGATIVE (NEGATIVE); COLOR,URINE YELLOW (YELLOW); GLUCOSE, URINE (UA) NEGATIVE (NEGATIVE); KETONES,URINE NEGATIVE (NEGATIVE); LEUKOCYTE ESTERASE ,URINE NEGATIVE (NEGATIVE); NITRATE,URINE NEGATIVE (NEGATIVE); OCCULT BLOOD,URINE NEGATIVE (NEGATIVE); PROTEIN,URINE TRACE mg/dL (NEGATIVE); SPECIFIC GRAVITIY, URINE 1.029 (1.003-1.030)
[2024-11-02 08:58] LABS: ALCOHOL, URINE DRUG SCREEN NEGATIVE (NEGATIVE); AMPHET/METH SCREEN,URINE NEGATIVE (NEGATIVE); BARBITURATE SCREEN, URINE NEGATIVE (NEGATIVE); BENZODIAZEPINES SCREEN,URINE NEGATIVE (NEGATIVE); CANNABINOID SCREEN,URINE NEGATIVE (NEGATIVE); COCAINE SCREEN,URINE NEGATIVE (NEGATIVE); METHADONE SCREEN, URINE NEGATIVE (NEGATIVE); OPIATE SCREEN,URINE NEGATIVE (NEGATIVE); PHENCYCLIDINE SCREEN,URINE NEGATIVE (NEGATIVE)
[2024-11-02 09:09] VITALS: BP 120/60; PULSE 67; RESP 17; TEMP 97.5; O2SAT 98
[2024-11-02 21:25] VITALS: RESP 18
[2024-11-03 08:10] VITALS: BP 121/76; PULSE 66; RESP 16; TEMP 97.6; O2SAT 98
[2024-11-03 20:00] VITALS: BP 148/84; PULSE 100; RESP 16; TEMP 98; O2SAT 96
[2024-11-04 09:03] VITALS: BP 122/95; PULSE 70; RESP 18; TEMP 97.9; O2SAT 95
[2024-11-04 20:33] VITALS: BP 124/72; PULSE 76; RESP 18; TEMP 97.7; O2SAT 95
[2024-11-05 09:00] VITALS: BP 109/60; PULSE 83; RESP 18; TEMP 96.5
[2024-11-05 16:21] VITALS: BP 124/83; PULSE 100; RESP 16; TEMP 97.9; O2SAT 100
[2024-11-05] MEDS: IBUPROFEN 400 MG TABLET PO PRN (16:21)
[2024-11-05 17:21] VITALS: RESP 17; O2SAT 98
[2024-11-05 20:00] VITALS: BP 124/83; PULSE 100; RESP 16; TEMP 97.9; O2SAT 100
[2024-11-06 08:42] VITALS: BP 120/60; PULSE 72; RESP 18; TEMP 97.4; O2SAT 99
[2024-11-06 20:25] VITALS: BP 126/70; PULSE 71; RESP 17; TEMP 97.7; O2SAT 97
[2024-11-07 10:35] VITALS: BP 104/75; PULSE 78; RESP 18; TEMP 97.7; O2SAT 99
[2024-11-07 20:11] VITALS: BP 120/66; PULSE 76; RESP 18; TEMP 97.9; O2SAT 99
[2024-11-07] MEDS: QUEtiapine FUMARATE 100 MG TABLET PO PRN (23:47)
[2024-11-08 08:12] VITALS: BP 122/69; PULSE 64; RESP 16; TEMP 97.6; O2SAT 99
[2024-11-08 10:23] VITALS: RESP 16
[2024-11-08 11:23] VITALS: RESP 16
[2024-11-08 20:17] VITALS: BP 126/64; PULSE 64; RESP 17; TEMP 97.8; O2SAT 100
[2024-11-09 09:31] VITALS: BP 124/65; PULSE 69; RESP 16; TEMP 97.6; O2SAT 98
[2024-11-09 21:40] VITALS: RESP 18
[2024-11-10 08:07] VITALS: BP_SYST 116; BP_SYST 128; BP_DIAS 67; BP_DIAS 77; PULSE 75; PULSE 91; RESP 15; RESP 16; TEMP 97.6; TEMP 98; O2SAT 96; O2SAT 99
[2024-11-10 22:16] VITALS: BP 132/78; PULSE 76; RESP 18; TEMP 98.4; O2SAT 98
[2024-11-11 00:35] VITALS: BP 130/76; PULSE 88; RESP 20; TEMP 98
[2024-11-11 01:30] VITALS: RESP 18
[2024-11-11 08:41] VITALS: BP 108/60; PULSE 75; RESP 17; TEMP 97.5; O2SAT 99
[2024-11-11] MEDS ORDERED: QUET200T30 PO (10:58)
[2024-11-11] MEDS ORDERED: SERT-439 PO (10:58)
[2024-11-11] MEDS ORDERED: ALLO-97 PO (10:58)
[2024-11-11] MEDS ORDERED: ATOR20TA65 PO (10:58)
[2024-11-11] MEDS ORDERED: AMLO-257 PO (10:58)
[2024-11-11 20:56] VITALS: BP 115/67; PULSE 78; RESP 18; TEMP 97.4; O2SAT 99
[2024-11-12 08:38] VITALS: BP 123/66; PULSE 76; RESP 16; TEMP 97.7; O2SAT 98
[2024-11-12] MEDS: QUEtiapine FUMARATE 200 MG TABLET PO SCH (21:45)
[2024-11-13] MEDS: ACETAMINOPHEN 325 MG TABLET PO PRN (00:29)
[2024-11-13 00:30] VITALS: BP 121/68; PULSE 76; RESP 16; TEMP 97.1; O2SAT 98
[2024-11-13 01:29] VITALS: TEMP 97.4
[2024-11-13 08:04] VITALS: BP 107/63; PULSE 75; RESP 16; TEMP 98.2; O2SAT 99
[2024-11-13 20:19] VITALS: BP 126/64; PULSE 73; RESP 18; TEMP 97.9; O2SAT 99
[2024-11-14 09:36] VITALS: BP 109/60; PULSE 73; RESP 17; TEMP 98.4; O2SAT 98
[2024-11-14 20:12] VITALS: BP 111/70; PULSE 73; RESP 17; TEMP 97.4; O2SAT 99
[2024-11-15 09:17] VITALS: BP 101/60; PULSE 66; RESP 18; TEMP 97.3; O2SAT 98
[2024-11-15 20:56] VITALS: BP 137/71; PULSE 72; RESP 16; TEMP 97.7; O2SAT 96
[2024-11-16 08:14] VITALS: BP 122/71; PULSE 69; RESP 15; TEMP 97.6; O2SAT 99
[2024-11-16 20:00] VITALS: BP 128/68; PULSE 73; RESP 16; TEMP 97.4; O2SAT 98
[2024-11-17 13:58] VITALS: BP 126/72; PULSE 70; RESP 17; TEMP 98; O2SAT 99
[2024-11-17 20:24] VITALS: BP 127/67; PULSE 69; RESP 16; TEMP 97.9; O2SAT 100
[2024-11-18 09:00] VITALS: BP 113/61; PULSE 77; RESP 17; TEMP 97.5; O2SAT 97
[2024-11-18] MEDS: LOPERAMIDE HCL 2 MG CAPSULE PO PRN (15:11)
[2024-11-18] MEDS: ONDANSETRON 4 MG TABLET PO PRN (15:11)
[2024-11-18 20:28] VITALS: BP 121/69; PULSE 90; RESP 16; TEMP 98.2; O2SAT 98
[2024-11-19 09:18] VITALS: BP 121/64; PULSE 68; RESP 18; TEMP 97.3; O2SAT 97
[2024-11-19 22:03] VITALS: BP 140/80; PULSE 80; RESP 20; TEMP 98.2; O2SAT 98
[2024-11-20 08:18] VITALS: BP 134/70; PULSE 85; RESP 16; TEMP 98; O2SAT 98
[2024-11-20 20:00] VITALS: BP 136/80; PULSE 82; RESP 16; TEMP 97.7; O2SAT 96
[2024-11-20] MEDS: MELATONIN 5 MG TABLET PO PRN (21:09)
[2024-11-21 10:31] VITALS: BP 128/68; PULSE 75; RESP 16; TEMP 97.7; O2SAT 96
[2024-11-21 21:10] VITALS: BP 132/70; PULSE 75; RESP 16; TEMP 97.6; O2SAT 96
[2024-11-22 08:21] VITALS: BP 125/76; PULSE 70; RESP 16; TEMP 97.5; O2SAT 97
[2024-11-22 20:42] VITALS: BP 130/78; PULSE 69; RESP 16; TEMP 97.5; O2SAT 98
[2024-11-23 08:17] VITALS: BP 107/60; PULSE 75; RESP 17; TEMP 97.2; O2SAT 96
[2024-11-23 08:37] VITALS: BP 107/60; PULSE 75; RESP 17; TEMP 97.2; O2SAT 96
[2024-11-23 20:11] VITALS: BP 113/67; PULSE 77; RESP 18; TEMP 97.5; O2SAT 98
[2024-11-24 08:14] VITALS: BP 121/65; PULSE 73; RESP 17; TEMP 98.2; O2SAT 98
[2024-11-24 20:13] VITALS: BP 133/76; PULSE 78; RESP 16; TEMP 97.6; O2SAT 98
[2024-11-24] MEDS: TraZODone HCL 50 MG TABLET PO PRN (20:59)
[2024-11-25 09:25] VITALS: BP 113/62; PULSE 67; RESP 18; TEMP 97.1; O2SAT 98
[2024-11-25 21:02] VITALS: BP 133/78; PULSE 78; RESP 16; TEMP 97.9; O2SAT 98
[2024-11-26 08:41] VITALS: BP 129/74; PULSE 87; RESP 17; TEMP 97.4; O2SAT 97
[2024-11-26 20:00] VITALS: BP 138/76; PULSE 96; RESP 18; TEMP 97.8; O2SAT 98
[2024-11-27 08:09] VITALS: BP 112/60; PULSE 70; RESP 16; TEMP 98.2; O2SAT 99
[2024-11-27 20:18] VITALS: BP 130/69; PULSE 78; RESP 17; TEMP 98.3; O2SAT 97
[2024-11-28 08:30] VITALS: BP 118/67; PULSE 71; RESP 16; TEMP 98; O2SAT 97
[2024-11-28] MEDS ORDERED: AMLO-257 PO (20:10)
[2024-11-28] MEDS ORDERED: SERT-439 PO (20:10)
[2024-11-28] MEDS ORDERED: QUET200T30 PO (20:10)
[2024-11-28] MEDS ORDERED: ALLO-97 PO (20:10)
[2024-11-28] MEDS ORDERED: ATOR20TA65 PO (20:10)
[2024-11-28 21:31] VITALS: BP 123/69; PULSE 78; RESP 16; TEMP 97.3
[2024-11-29 09:18] VITALS: BP 141/100; PULSE 95; RESP 16; TEMP 97.6; O2SAT 98
== END 2024-11-29 08:55 | disposition home or self-care (01) | DRG 750 ==
LOC: B3A 10-29 07:20
PROVIDERS: ADMIT Psychiatry & Neurology Psychiatry; ATTEND Psychiatry & Neurology Psychiatry
PROC: GZHZZZZ Group Psychotherapy (ICD-10-PCS; principal; 2024-11-07)
PROC: GZ52ZZZ Individual Psychotherapy, Cognitive (ICD-10-PCS; 2024-11-07)
DX: F25.1 Schizoaffective disorder, depressive type (principal); R45.851 Suicidal ideations; E78.5 Hyperlipidemia, unspecified; I10 Essential (primary) hypertension; G62.9 Polyneuropathy, unspecified; F15.10 Other stimulant abuse, uncomplicated; K59.00 Constipation, unspecified; M54.9 Dorsalgia, unspecified; F41.9 Anxiety disorder, unspecified; Z79.899 Other long term (current) drug therapy; Z91.51 Personal history of suicidal behavior; Z59.00 Homelessness unspecified
CPT/HCPCS: 80048; 80307; 81003; 84132; 85025; 87081; 87804; 99285; G0480; Q0162

== ENCOUNTER 2024-10-28 21:30 | Emergency (ER) | payer SELFPAY ==
[~2024-10-28] VITALS: Ht 190.5 cm; Wt 111.0 kg
[2024-10-28 23:41] VITALS: TEMP 97.7
[2024-10-29] LABS: BASOPHILS % (AUTO) 1.4 % (0.0-2.0); EOSINOPHILS % (AUTO) 3.4 % (1.0-6.0); HEMATOCRIT 42.8 % (41-53); HEMOGLOBIN 14.1 g/dL (13.5-17.5); LYMPHOCYTES # (AUTO) 3.9 K/uL (1.0-4.8); LYMPHOCYTES % (AUTO) 35.9 % (22.0-44.0); MEAN CORPUSCULAR HEMOGLOBIN 28.1 pg (26.0-34.0); MEAN CORPUSCULAR VOLUME 85 fL (80-100); MONOCYTES # (AUTO) 0.8 K/uL (0.1-1.0); MONOCYTES % (AUTO) 7.7 % (2.0-9.0); NEUTROPHILS # (AUTO) 5.6 K/uL (1.8-7.7); NEUTROPHILS % (AUTO) 51.6 % (40.0-70.0); PLATELET COUNT (AUTO) 400 K/uL (150-450); RED BLOOD CELL COUNT(AUTO) 5.02 MIL/uL (4.50-5.90); RED CELL DISTRIBUTION WIDTH 14.3 % (11.5-14.5); WHITE BLOOD COUNT (AUTO) 10.9 K/uL (4.5-11.0)
[2024-10-29 00:02] LABS: APPEARANCE,URINE CLEAR (CLEAR); BILIRUBIN,URINE NEGATIVE (NEGATIVE); COLOR,URINE LIGHT YELLOW (YELLOW); GLUCOSE, URINE (UA) NEGATIVE (NEGATIVE); KETONES,URINE NEGATIVE (NEGATIVE); LEUKOCYTE ESTERASE ,URINE NEGATIVE (NEGATIVE); NITRATE,URINE NEGATIVE (NEGATIVE); OCCULT BLOOD,URINE NEGATIVE (NEGATIVE); PROTEIN,URINE NEGATIVE (NEGATIVE); SPECIFIC GRAVITIY, URINE 1.014 (1.003-1.030); UROBILINOGEN,URINE <=1.0 mg/dL (<=1.0)
[2024-10-29 00:04] LABS: ANION GAP 8 mmol/L (8-16); CALCIUM, TOTAL 8.4 mg/dL (8.8-10.5); CARBON DIOXIDE 30 mmol/L (22-29); CHLORIDE 103 mmol/L (98-107); CREATININE 0.87 mg/dL (0.60-1.30); GLOMERULAR FILTR. RATE CALC > 60 mL/min (>60); GLUCOSE,RANDOM 88 mg/dL (70-110); POTASSIUM 3.5 mmol/L (3.5-5.1); SODIUM SERUM 141 mmol/L (136-145); UREA NITROGEN, BLOOD 13 mg/dL (7-18)
[2024-10-29 00:27] LABS: AMPHET/METH SCREEN,URINE POSITIVE (NEGATIVE); BARBITURATE SCREEN, URINE NEGATIVE (NEGATIVE); BENZODIAZEPINES SCREEN,URINE NEGATIVE (NEGATIVE); CANNABINOID SCREEN,URINE NEGATIVE (NEGATIVE); COCAINE SCREEN,URINE NEGATIVE (NEGATIVE); METHADONE SCREEN, URINE NEGATIVE (NEGATIVE); OPIATE SCREEN,URINE NEGATIVE (NEGATIVE); PHENCYCLIDINE SCREEN,URINE NEGATIVE (NEGATIVE)
[2024-10-29 00:33] LABS: COVID AG,FIA SOURCE NASAL SWAB
[2024-10-29 00:48] LABS: ALCOHOL, URINE DRUG SCREEN NEGATIVE (NEGATIVE)
[2024-10-29 00:56] LABS: SARS-COV2 (COVID) ANTIGEN,FIA Negative (Negative)
[2024-10-29 00:57] LABS: INFLUENZA TYPE A NEGATIVE FOR TYPE A (NEGATIVE); INFLUENZA TYPE B NEGATIVE FOR TYPE B (NEGATIVE)
[2024-10-29 04:24] VITALS: BP 133/69; PULSE 81; RESP 17; O2SAT 98
[2024-10-29] MEDS: QUEtiapine FUMARATE 100 MG TABLET PO ONE (05:44)
[2024-10-29] MEDS ORDERED: DOCU-385 PO (16:04)
== END 2024-10-29 06:35 | disposition home or self-care (01) ==
LOC: EMS 21:32
DX: F25.9 Schizoaffective disorder, unspecified (principal); M54.50 Low back pain, unspecified; I10 Essential (primary) hypertension; F32.A Depression, unspecified; F17.210 Nicotine dependence, cigarettes, uncomplicated; Z88.8 Allergy status to other drugs, medicaments and biological substances; Z79.899 Other long term (current) drug therapy; Z20.822 Contact with and (suspected) exposure to COVID-19
CPT/HCPCS: 99285; 87426; 80048; 81003; 85025; 87804; 36415; 80307; G0480

== ENCOUNTER 2025-01-09 08:32 | Emergency (ER) | payer MEDICAID ==
[~2025-01-09] VITALS: Ht 190.5 cm; Wt 104.5 kg
[~2025-01-09 08:32] MED LIST changes: -ATOR20TA PO; +ATOR20TA65 PO; -CHLO100T42 PO; -DSS100 PO; -GABA-1201 PO; -QUET200T PO; +QUET200T30 PO; -SERT-162 PO; +SERT-439 PO
[2025-01-09 08:46] VITALS: BP 148/96; PULSE 84; RESP 16; TEMP 97.8; O2SAT 99
[2025-01-09] MEDS ORDERED: QUET200T5 PO (09:43)
[2025-01-09] MEDS ORDERED: MELA3TAB89 PO (09:43)
[2025-01-09] MEDS ORDERED: DIPH50CA37 PO (09:43)
[2025-01-09] MEDS ORDERED: SERT-162 PO (09:43)
[2025-01-09] MEDS: SERTRALINE HCL 100 MG TABLET PO ONE (10:09)
[2025-01-09] MEDS: QUEtiapine FUMARATE 200 MG ER TABLET PO ONE (10:09)
== END 2025-01-09 10:15 | disposition home or self-care (01) ==
LOC: EMS 08:32
DX: F25.1 Schizoaffective disorder, depressive type (principal); F17.210 Nicotine dependence, cigarettes, uncomplicated; F15.90 Other stimulant use, unspecified, uncomplicated; F14.90 Cocaine use, unspecified, uncomplicated; Z88.8 Allergy status to other drugs, medicaments and biological substances; Z79.899 Other long term (current) drug therapy
CPT/HCPCS: 99283

== ENCOUNTER 2025-02-25 21:41 | Emergency (ER) | payer MEDICAID ==
[~2025-02-25] VITALS: Ht 170.2 cm; Wt 86.0 kg
[~2025-02-25 21:41] MED LIST changes: +DIPH50CA37 PO; +MELA3TAB89 PO; +QUET200T5 PO; +SERT-162 PO
[2025-02-25 21:47] VITALS: TEMP 97.9
[2025-02-25 22:12] LABS: BASOPHILS % (AUTO) 1.2 % (0.0-2.0); EOSINOPHILS % (AUTO) 2.5 % (1.0-6.0); HEMATOCRIT 38.7 % (41-53); HEMOGLOBIN 13.2 g/dL (13.5-17.5); LYMPHOCYTES # (AUTO) 2.6 K/uL (1.0-4.8); LYMPHOCYTES % (AUTO) 27.8 % (22.0-44.0); MEAN CORPUSCULAR HEMOGLOBIN 28.9 pg (26.0-34.0); MEAN CORPUSCULAR HGB CONC 34.1 G/dL (31.0-37.0); MEAN CORPUSCULAR VOLUME 85 fL (80-100); MONOCYTES # (AUTO) 0.7 K/uL (0.1-1.0); MONOCYTES % (AUTO) 7.8 % (2.0-9.0); NEUTROPHILS # (AUTO) 5.7 K/uL (1.8-7.7); NEUTROPHILS % (AUTO) 60.7 % (40.0-70.0); PLATELET COUNT (AUTO) 342 K/uL (150-450); RED BLOOD CELL COUNT(AUTO) 4.55 MIL/uL (4.50-5.90); RED CELL DISTRIBUTION WIDTH 14.3 % (11.5-14.5); WHITE BLOOD COUNT (AUTO) 9.3 K/uL (4.5-11.0)
[2025-02-25 22:19] LABS: ANION GAP 11 mmol/L (8-16); CARBON DIOXIDE 27 mmol/L (22-29); CHLORIDE 102 mmol/L (98-107); CREATININE 0.92 mg/dL (0.60-1.30); GLOMERULAR FILTR. RATE CALC > 60 mL/min (>60); GLUCOSE,RANDOM 140 mg/dL (70-110); POTASSIUM 3.6 mmol/L (3.5-5.1); SODIUM SERUM 140 mmol/L (136-145); UREA NITROGEN, BLOOD 22 mg/dL (7-18)
[2025-02-25 22:20] LABS: ALCOHOL, BLOOD (SERUM) < 3 mg/dL (0-10)
[2025-02-25 23:21] LABS: COVID AG,FIA SOURCE NASAL SWAB
[2025-02-25 23:39] LABS: SARS-COV2 (COVID) ANTIGEN,FIA Negative (Negative)
[2025-02-26 00:56] VITALS: BP 131/72; PULSE 92; RESP 16; O2SAT 100
== END 2025-02-26 01:13 | disposition home or self-care (01) ==
LOC: EMS 21:42
DX: F25.1 Schizoaffective disorder, depressive type (principal); F15.10 Other stimulant abuse, uncomplicated; R45.851 Suicidal ideations; Z88.8 Allergy status to other drugs, medicaments and biological substances; Z79.899 Other long term (current) drug therapy; Z20.822 Contact with and (suspected) exposure to COVID-19
CPT/HCPCS: 99283; 87426; 80048; 85025; 36415; G0480; 99284